=== PATIENT | male | born 1955 | race Caucasian/White ===

== ENCOUNTER 2022-02-28 18:22 | Inpatient (IN) | payer MEDICARE, BC ==
[~2022-02-28] VITALS: Ht 180.3 cm; Wt 79.8 kg
--- NOTE | 2022-02-28 19:30 | NUR ---
[id number]. ABD PAIN X 3 DAY. +N,-V,+D. PATIENT IS AAOX4. ABLE TO EXPLAIN THAT THE PAIN IS ON AND OFF. STABBING IN PRESENTATION. WHENEVER HE IS IN PAIN, HE WILL ACCIDENTALLY PASS LIQUID STOOL. PLACED PATIENT COMFORTABLY IN BED. VITALS CHECKED.
[2022-02-28] MEDS ORDERED: MORPHINE SULFATE INJ 4 MG/ML DISP.SYRIN ONE (20:11)
[2022-02-28] MEDS ORDERED: ONDANSETRON HCL/PF 4 MG/2 ML VIAL ONE (20:11)
--- NOTE | 2022-02-28 20:15 | NUR ---
PATIENT BROUGHT TO CT DEPT
[2022-02-28] MEDS ORDERED: ONDANSETRON HCL/PF 4 MG/2 ML VIAL IVP ONE (20:30)
[2022-02-28] MEDS ORDERED: MORPHINE SULFATE INJ 2 MG/ML DISP.SYRIN IV ONE (20:30)
[2022-02-28 20:55] LABS: BASOPHILS # (AUTO) 0.1 K/uL (0.0-0.2); BASOPHILS % (AUTO) 0.2 % (0.0-2.0); EOSINOPHILS % (AUTO) 0.1 % (0.0-6.0); HEMATOCRIT 41 % (39-51); HEMOGLOBIN 13.1 g/dL (13.5-17.5); LYMPHOCYTES # (AUTO) 0.6 K/uL (0.8-4.8); MEAN CORPUSCULAR HGB CONC 32 g/dl (31.0-36.0); MEAN CORPUSCULAR VOLUME 86 fL (80-96); MONOCYTES % (AUTO) 6.1 % (2.0-12.0); NEUTROPHILS # (AUTO) 29.3 K/uL (1.8-8.9); NEUTROPHILS % (AUTO) 91.6 % (43.0-81.0); PLATELET COUNT (AUTO) 697 K/uL (150-450); RED BLOOD CELL COUNT(AUTO) 4.83 MIL/uL (4.5-6.0)
--- NOTE | 2022-02-28 20:56 | NUR ---
DR FRANCIS ON THE PHONE WITH DR TEMPLETON, GEN SURG
[2022-02-28] MEDS ORDERED: PIPERACILLIN /TAZOBACTAM 3.375 G in IV D5W 50 ML IV ONE (21:00)
[2022-02-28] MEDS ORDERED: PIPERACILLIN /TAZOBACTAM 3.375 G VIAL IV ONE (21:17)
[2022-02-28 21:21] LABS: ALANINE AMINOTRANSFERASE 25 U/L (12-78); ALBUMIN 2.5 g/dL (3.4-5.0); ALKALINE PHOSPHATASE 123 U/L (46-116); ASPARTATE AMINOTRANSFERASE 27 U/L (15-37); BILIRUBIN,DIRECT 0.1 mg/dL (0.0-0.2); BILIRUBIN,TOTAL 0.6 mg/dL (0.2-1.0); CALCIUM, SERUM 9.2 mg/dL (8.5-10.1); CARBON DIOXIDE 26 mmol/L (21-32); CHLORIDE 95 mmol/L (98-107); CREATININE 1.1 mg/dL (0.6-1.3); GLUCOSE 142 mg/dL (74-106); LIPASE 47 U/L (73-393); POTASSIUM 4.1 mmol/L (3.5-5.1); SODIUM SERUM 131 mmol/L (136-145); TOTAL PROTEIN, SERUM 8.8 g/dL (6.4-8.2); UREA NITROGEN, BLOOD 18 mg/dL (7-18)
--- NOTE | 2022-02-28 21:30 | NUR ---
RECEIVED A CALL FROM FRIEND SEGUN STAFFORD . PATIENT WANTS HER NAME ON THE LIST. UPDATE GIVEN TO LEN CAST
[2022-02-28 22:23] LABS: BAND % (MANUAL) 2 % (0.0-5.0); LYMPHOCYTES % (MANUAL) 8 % (16-48); MONOCYTES % (MANUAL) 5 % (0-11.0); NEUTROPHILS % (MANUAL) 85 (42-76)
--- NOTE | 2022-02-28 22:25 | NUR ---
REPORT GIVEN TO GEORGE BALBUENA. PATIENT WILL GO UP SOON COVID RESULT OUT.
[2022-02-28] MEDS ORDERED: ENOXAPARIN SODIUM 40 MG/0.4 ML DISP.SYRIN SQ SCH (22:30)
[2022-02-28] MEDS ORDERED: VANCOMYCIN 1.5 GM in IV D5W 500ml IV ONE (23:30)
[2022-02-28] MEDS ORDERED: CEFEPIME 2 GM in IV D5W 100 ML IV ONE (23:30)
--- NOTE | 2022-02-28 23:30 | NUR ---
TEXTED DR MOSER ABOUT THE CRITICAL RESULT OF PATIENT. AWAITING FOR RESPONSE.
--- NOTE | 2022-02-28 23:56 | NUR ---
RN NOTE (RECEIVING PATIENT FROM ER) PATIENT ARRIVED TO ER VIA GURNEY FROM ER. A/OX4. NO S/S/ OF DISTRESS, BREATHING WITHOUT DIFFICULTY ON ROOM AIR. LFA #20 INTACT AND PATENT. TELE MONITOR APPLIED AND REVEALS ST 116 (~PATIENT'S NORMAL PER CURRENT RECORD). SAFETY MEASURES IN PLACE: BED LOCKED AND AT LOWEST POSITION, RAILS UP X2, CALL MCFADDEN WITHIN REACH. PATIENT WAS ORIENTED TO THE UNIT, GIVEN CALL MCFADDEN AND INSTRUCTED ON ITS USE. PATEINT TELE MONITOR APPLIED TO PATIENT. BELONGINGS ACCOUNTED FOR, LOGGED INTO SHEET, AND PLACED IN CHART. DR. MOSER HAS ALREADY COME UP AND SEEN THE PATIENT. THIS RN WAS AT BEDSIDE THIS HAPPENED. PATIENT IS STABLE; WILL CONTINUE TO MONITOR PATIENT.
--- NOTE | 2022-02-28 23:58 | NUR ---
TRANSFERRED PATIENT TO ROOM PER STRETCHER
[2022-03-01] VITALS (8 sets, daily range): BP systolic 112–146; BP diastolic 72–88
[2022-03-01] MEDS ORDERED: IV NS 0.9% 1,000 ML IV ONE (00:30)
[2022-03-01] MEDS ORDERED: VANCOMYCIN 1 GM VIAL ONE ×2 (00:50→00:51)
[2022-03-01] MEDS: IV NS 0.9% 1,000 ML IV SCH ×4 (01:29→22:58)
[2022-03-01] MEDS: ONDANSETRON HCL/PF 4 MG/2 ML VIAL IVP PRN ×4 (02:46→22:57)
[2022-03-01 05:06] LABS: BILIRUBIN,URINE NEGATIVE (NEGATIVE); COLOR,URINE YELLOW (YELLOW); LEUKOCYTE ESTERASE ,URINE NEGATIVE (NEGATIVE); NITRITE, URINE NEGATIVE (NEGATIVE); PH,URINE 5.5 (5.0-8.0); PROTEIN,URINE NEGATIVE (NEGATIVE); UGLUCOSE NEGATIVE (NEGATIVE); UROBILINOGEN,URINE 0.2 EU/dL (0.2)
[2022-03-01 05:08] LABS: BACTERIA,URINE Rare /HPF (None Seen); RBC,URINE 0-2 /HPF (0-2); SQUAMOUS EPITHELIAL CELL,UR Rare /HPF (None Seen); WBC,URINE 0-2 /HPF (0-3)
[2022-03-01 05:55] LABS: BASOPHILS # (AUTO) 0.1 K/uL (0.0-0.2); BASOPHILS % (AUTO) 0.3 % (0.0-2.0); HEMATOCRIT 40 % (39-51); HEMOGLOBIN 12.9 g/dL (13.5-17.5); LYMPHOCYTES # (AUTO) 0.6 K/uL (0.8-4.8); LYMPHOCYTES % (AUTO) 2.1 % (20.0-44.0); MEAN CORPUSCULAR HGB CONC 32 g/dl (31.0-36.0); MEAN CORPUSCULAR VOLUME 85 fL (80-96); MONOCYTES # (AUTO) 2.4 K/uL (0.1-1.30); MONOCYTES % (AUTO) 8.3 % (2.0-12.0); NEUTROPHILS # (AUTO) 26.2 K/uL (1.8-8.9); NEUTROPHILS % (AUTO) 89.3 % (43.0-81.0); PLATELET COUNT (AUTO) 686 K/uL (150-450); RED BLOOD CELL COUNT(AUTO) 4.75 MIL/uL (4.5-6.0); WHITE BLOOD COUNT (AUTO) 29.4 K/uL (4.3-11.0)
[2022-03-01 06:16] LABS: ALBUMIN 2.2 g/dL (3.4-5.0); BILIRUBIN,TOTAL 0.5 mg/dL (0.2-1.0); CALCIUM, SERUM 8.8 mg/dL (8.5-10.1); MAGNESIUM 1.9 mg/dL (1.8-2.4); PHOSPHORUS 2.8 mg/dL (2.5-4.9); POTASSIUM 3.7 mmol/L (3.5-5.1); TOTAL PROTEIN, SERUM 7.7 g/dL (6.4-8.2)
--- NOTE | 2022-03-01 06:25 | NUR ---
RN CLOSING NOTE PATIENT AWAKE IN BED. A/OX4. NO S/S OF DISTRESS, BREATHING WITHOUT DIFFICULTY ON ROOM AIR. LFA #20 INTACT AND PATENT W/ NS 125ML/HR. TELE MONITOR READS ST 103. SAFETY MEASURES IN PLACE: BED LOCKED AND IN PLACE, RAILS UP X3, CALL MCFADDEN WITHIN REACH. WILL ENDORSE TO NEXT SHIFT FOR DANISHA.
[2022-03-01] MEDS: CEFEPIME 2 GM in IV D5W 100 ML IV SCH ×3 (08:32→22:57)
[2022-03-01] MEDS ORDERED: FOLI0.4T6 PO (08:33)
--- NOTE | 2022-03-01 09:37 | NUR ---
WOUND CARE CONSULT: PT REFUSED SKIN ASSESSMENT AND STATED HAS NO OPEN WOUNDS. WILL SEE PRN.
[2022-03-01 11:36] LABS: BAND % (MANUAL) 2 % (0.0-5.0); LYMPHOCYTES % (MANUAL) 4 % (16-48); MONOCYTES % (MANUAL) 4 % (0-11.0); NEUTROPHILS % (MANUAL) 90 (42-76)
[2022-03-01] MEDS ORDERED: LIDOCAINE 1% INJ 50 ML MDV IJ ONE (12:53)
[2022-03-01] MEDS ORDERED: FENTANYL PF 250MCG/5ML AMPUL IV PRN (13:30)
[2022-03-01] MEDS ORDERED: FLUMAZENIL 0.5 MG VIAL IV PRN ×2 (13:30)
[2022-03-01] MEDS ORDERED: NALOXONE HCL 0.4 MG/ML AMPUL IV PRN (13:30)
[2022-03-01] MEDS ORDERED: MIDAZOLAM HCL 2 MG/2ML VIAL IV PRN (13:30)
[2022-03-01] MEDS ORDERED: NALOXONE PREFILLED SYRINGE 2 MG/2 ML SYRINGE IV PRN (13:30)
[2022-03-01] MEDS ORDERED: MIDAZOLAM HCL 2 MG/2ML VIAL IV ONE (13:30)
[2022-03-01] MEDS ORDERED: FENTANYL PF 100MCG/2ML AMPUL IV ONE (13:30)
[2022-03-01] MEDS: VANCOMYCIN 1 GM in IV D5W 250ml IV SCH (17:33)
--- NOTE | 2022-03-01 18:27 | NUR ---
RN CLOSING NOTE PATIENT RECEIVED ON SHIFT IN BED AND AWAKE. A/O X4 AND ABLE TO VERBALIZE ALL NEEDS. IV ACCESS TO LFA REMAINED IN TACT AND PATENT ON SHIFT. NS RUNNING CONTINUOUSLY @ 125ML/HR. PATIENT C/O NAUSEA ON SHIFT. RECEIVED ZOFRAN VIA IV PUSH X2. RECEIVED CT ABDOMEN DRAINAGE ON SHIFT; PERFORMED IN RADIOLOGY. BODILY FLUID FROM DRAINAGE SENT TO LAB/PATHOLOGY PER PHYSICIAN ORDER. PATIENT CURRENTLY HAS 2 DRAINS FROM EACH PUNCTURE SITE ON LEFT AND RIGHT OF ABDOMEN. MINIMAL AMOUNT OF DRAINAGE IN TUBING. PATIENT UNABLE TO TOLERATED MEALS HE REMAINED NAUSEOUS THROUGHOUT SHIFT. IV ANTIBIOTICS GIVEN ON SHIFT. TOLERATED BOTH WELL WITH NO S/SX OF ADVERSE REACTIONS. SAFETY MEASURES INTACT, CALL LIGHT WITHIN REACH. WILL CONT TO MONITOR.
--- NOTE | 2022-03-01 20:23 | NUR ---
RN OPENING NOTE PATIENT AWAKE IN BED. A/OX4. NO S/S OF DISTRESS, BREATHING WITHOUT DIFFICULTY ON ROOM AIR. LFA #20 INTACT AND PATENT W/ NS 125ML/HR. TELE READS ST 105. SAFETY MEASURES IN PLACE: BED LOCKED, AT LOWEST POSITION, RAILS UP X2, CALL MCFADDEN WITHIN REACH. WILL CONTINUE TO MONITOR THE PATIENT.
[2022-03-02] MEDS: VANCOMYCIN 1 GM in IV D5W 250ml IV SCH (02:37)
[2022-03-02] MEDS: ONDANSETRON HCL/PF 4 MG/2 ML VIAL IVP PRN ×4 (05:15→18:12)
[2022-03-02 05:37] VITALS: BP 139/84
[2022-03-02 06:17] LABS: CALCIUM, SERUM 8.4 mg/dL (8.5-10.1); CREATININE 0.9 mg/dL (0.6-1.3); POTASSIUM 3.2 mmol/L (3.5-5.1)
--- NOTE | 2022-03-02 06:28 | NUR ---
RN CLOSING NOTE PATIENT AWAKE IN BED. A/OX4. NO S/S OF DISTRESS, BREATHING WITHOUT DIFFICULTY ON ROOM AIR. LFA #20 INTACT AND PATENT W/ NS 125ML/HR. TELE READS SR 87. SAFETY MEASURES IN PLACE: BED LOCKED AND AT LOWEST POSITION, RAILS UP X2, CALL MCFADDEN WITHIN REACH. WILL ENDORSE TO NEXT SHIFT FOR DANISHA.
--- NOTE | 2022-03-02 07:20 | NUR ---
SEWER AND INSPECTOR OPENING NOTES RECEIVED PATIENT SLEEPING IN BED, ON 5L VIA NC, NO S/S OF RESPIRATORY DISTRESS. A/Ox1-3, EPISODES OF CONFUSION, GOES IN AND OUT OF A/O x1 TO A/Ox 3. ON TELE MONITORING SHOWING SINUS TACH WITH PACs HR 106. NO COMPLAINT OF CHEST PAIN OR CARDIAC DISTRESS. IV ACCESS R FA #20 WITH NS RUNNING @ 100 ML/HR. ON BED REST, PATIENT USES DIAPER. SKIN INTACT. PATIENT HAD BILATERAL SOFT WRIST RESTRAINTS. CIRCULATION WNL, SKIN INTACT, WILL CONTINUE TO MONITOR Q15 MINUTES AND NEEDED. SAFETY MEASURES IN PLACE: BED LOCKED AND IN LOWEST POSITION, HOB ELEVATED, SIDE RAILS UP x2, CALL LIGHT WITHIN REACH. WILL CONTINUE TO MONITOR.
[2022-03-02 08:00] VITALS: BP 137/86
[2022-03-02] MEDS: CEFEPIME 2 GM in IV D5W 100 ML IV SCH ×3 (08:20→22:14)
[2022-03-02] MEDS: IV NS 0.9% 1,000 ML IV SCH ×2 (08:23→16:26)
--- NOTE | 2022-03-02 08:30 | NUR ---
RN OPENING NOTE- RECEIVED REPORT. BEGIN CARE OF PT
[2022-03-02] MEDS: MORPHINE SULFATE INJ 2 MG/ML DISP.SYRIN IV PRN ×3 (08:32→20:55)
[2022-03-02] MEDS: ENOXAPARIN SODIUM 40 MG/0.4 ML DISP.SYRIN SQ SCH (10:22)
[2022-03-02] MEDS: POTASSIUM CHLORIDE 20 MEQ TAB.PRT.SR PO SCH ×3 (10:23→12:49)
[2022-03-02 11:01] LABS: BASOPHILS % (AUTO) 0.1 % (0.0-2.0); HEMATOCRIT 39 % (39-51); HEMOGLOBIN 12.3 g/dL (13.5-17.5); LYMPHOCYTES # (AUTO) 0.9 K/uL (0.8-4.8); LYMPHOCYTES % (AUTO) 2.8 % (20.0-44.0); MEAN CORPUSCULAR HGB CONC 32 g/dl (31.0-36.0); MEAN CORPUSCULAR VOLUME 85 fL (80-96); MONOCYTES # (AUTO) 2.5 K/uL (0.1-1.30); MONOCYTES % (AUTO) 8.1 % (2.0-12.0); NEUTROPHILS # (AUTO) 27.9 K/uL (1.8-8.9); PLATELET COUNT (AUTO) 685 K/uL (150-450); RED BLOOD CELL COUNT(AUTO) 4.55 MIL/uL (4.5-6.0)
[2022-03-02 11:23] LABS: WHITE BLOOD COUNT (AUTO) 31.3 K/uL (4.3-11.0)
--- NOTE | 2022-03-02 11:24 | NUR ---
RN NOTE- LAB PHONED WBC 31.1. DR CALLAHAN AWARE
--- NOTE | 2022-03-02 11:48 | NUR ---
RN NOTE- PT W TERESA. AUGUSTINE STRATTON NP ORDERED REGLAN 10 IVP TID PRN
[2022-03-02 12:00] VITALS: BP 143/81
[2022-03-02] MEDS: METOCLOPRAMIDE HCL 10 MG/2 ML VIAL IV PRN ×2 (12:49→20:53)
[2022-03-02 13:07] LABS: *SPE A/G RATIO 0.5 (0.7-1.7); *SPE ALPHA-1-GLOBULIN 0.4 g/dL (0.0-0.4); *SPE ALPHA-2-GLOBULIN 1.3 g/dL (0.4-1.0); *SPE BETA GLOBULIN 0.9 g/dL (0.7-1.3); *SPE M-SPIKE Not Observed g/dL (Not Observed)
[2022-03-02] MEDS: VANCOMYCIN 1.25 GM in IV D5W 250 ML IV SCH (14:48)
[2022-03-02 16:00] VITALS: BP 130/94
--- NOTE | 2022-03-02 19:14 | NUR ---
RN CLOSING NOTES AOX4, NAUSEA CONTINUES DOES HICCOUGHS THOUGH PERIODS OF RELIEF IV ACCESS R FA #20 WITH NS RUNNING @ 100 ML/HR. ON BED REST, SKIN INTACT. SKIN INTACT, WILL CONTINUE TO MONITOR Q15 MINUTES AND NEEDED. SAFETY MEASURES IN PLACE: BED LOCKED AND IN LOWEST POSITION, HOB ELEVATED, SIDE RAILS UP x2, CALL LIGHT WITHIN REACH. WILL CONTINUE TO MONITOR.
--- NOTE | 2022-03-02 19:30 | NUR ---
UNIVERSAL BANKER OPENING NOTES RECEIVED PATIENT LYING IN BED AWAKE. A/O X4. BREATHING EVEN AND NON-LABORED ON ROOM AIR. NOT IN APPARENT DISTRESS. C/O LOWER ABDOMINAL PAIN 10/05. VERBALIZED HE STILL FEELS NAUSEOUS AND HAVE HICCUPS AT TIMES. ON TELE MONITOR READING SINUS RHYTHM WITH V-PACING AT 86 BPM. HAS LEFT FOREARM IV ACCESS #20G WITH NS RUNNING AT 125 ML/HR. BILATERAL ABDOMINAL DRAIN NOTED WITH BROWNISH DISCHARGE. SAFETY MEASURES IN PLACE: BED LOCKED AND IN LOWEST POSITION, SIDE RAILS UP x2, CALL LIGHT WITHIN REACH. WILL CONTINUE POC. Addendum: 03/02/22 at 2120 by October ROOSEVELT VAZQUEZ ON TELE MONITOR READING SINUS RHYTHM AT 86 BPM.
[2022-03-02 20:00] VITALS: BP 135/91
--- NOTE | 2022-03-02 20:30 | NUR ---
COUNTY TREASURER NOTES RECEIVED A CALL FROM DR. CALLAHAN WITH THE FF ORDERS. READ BACK, NOTED AND CARRIED OUT: - NPO AT MIDNIGHT - CONSENT FOR SURGERY (EXPLORATORY LAPAROTOMY, POSSIBLE BOWEL RESECTION, POSSIBLE OSTOMY AND DRAINAGE OF ABDOMINAL PUS/INFECTION)
[2022-03-02 21:26] LABS: BAND % (MANUAL) 8 % (0.0-5.0); LYMPHOCYTES % (MANUAL) 1 % (16-48); MONOCYTES % (MANUAL) 3 % (0-11.0); NEUTROPHILS % (MANUAL) 88 (42-76)
[2022-03-03] VITALS (10 sets, daily range): BP systolic 92–143; BP diastolic 59–81
[2022-03-03] MEDS: VANCOMYCIN 1.25 GM in IV D5W 250 ML IV SCH ×2 (01:32→14:55)
[2022-03-03] MEDS: METOCLOPRAMIDE HCL 10 MG/2 ML VIAL IV PRN (05:15)
[2022-03-03 06:14] LABS: BASOPHILS % (AUTO) 0.1 % (0.0-2.0); HEMATOCRIT 37 % (39-51); HEMOGLOBIN 11.7 g/dL (13.5-17.5); LYMPHOCYTES # (AUTO) 0.7 K/uL (0.8-4.8); LYMPHOCYTES % (AUTO) 2.6 % (20.0-44.0); MEAN CORPUSCULAR HGB CONC 32 g/dl (31.0-36.0); MEAN CORPUSCULAR VOLUME 83 fL (80-96); MONOCYTES # (AUTO) 1.6 K/uL (0.1-1.30); MONOCYTES % (AUTO) 5.7 % (2.0-12.0); NEUTROPHILS # (AUTO) 25.7 K/uL (1.8-8.9); NEUTROPHILS % (AUTO) 91.6 % (43.0-81.0); PLATELET COUNT (AUTO) 702 K/uL (150-450); RED BLOOD CELL COUNT(AUTO) 4.39 MIL/uL (4.5-6.0); WHITE BLOOD COUNT (AUTO) 28.1 K/uL (4.3-11.0)
[2022-03-03 06:30] LABS: BILIRUBIN,TOTAL 0.5 mg/dL (0.2-1.0); CALCIUM, SERUM 8.4 mg/dL (8.5-10.1); CREATININE 0.9 mg/dL (0.6-1.3); MAGNESIUM 1.9 mg/dL (1.8-2.4); POTASSIUM 3.7 mmol/L (3.5-5.1)
--- NOTE | 2022-03-03 06:30 | NUR ---
VIDEO TAPE DUPLICATOR CLOSING NOTES PATIENT LYING IN BED ASLEEP, EASY TO AROUSE. A/O X4. STILL HAVING INTERMITTENT HICCUPS. CURRENTLY NPO. NO SOB OR NOTED, TOLERATING ROOM AIR WELL. DENIES PAIN AT THIS TIME. AFEBRILE. ON TELE MONITOR READING SINUS RHYTHM AT 88 BPM. HAS LEFT FOREARM IV ACCESS #20G AND SALINE LOCKED. INTACT, PATENT AND FLUSHING. BILATERAL ABDOMINAL DRAIN NOTED WITH MINIMAL BROWNISH DISCHARGE. ALL DUE MEDS GIVEN AND NEEDS ATTENDED. SAFETY MEASURES MAINTAINED: BED LOCKED AND IN LOWEST POSITION, SIDE RAILS UP X2, CALL LIGHT WITHIN REACH. WILL ENDORSE FOR DANISHA.
[2022-03-03 06:43] LABS: ALBUMIN 1.9 g/dL (3.4-5.0)
[2022-03-03] MEDS: CEFEPIME 2 GM in IV D5W 100 ML IV SCH ×3 (06:58→22:12)
[2022-03-03] MEDS ORDERED: LIDOCAINE HCL/MPF 1% 30 ML VIAL IJ ONE (07:18)
[2022-03-03] MEDS ORDERED: BUPIVACAINE MPF 0.5% W/EPI INJ 30 ML VIAL ONE (07:19)
--- NOTE | 2022-03-03 07:30 | NUR ---
MEDICARE COMPLIANCE AUDITOR OPENING NOTES RECEIVED PT IN BED, AWAKE ALERT AND ORIENTED X 4 AND ABLE TO VERBALIZED NEEDS, NO SOB OR CARDIAC DISTRESS NOTED. ON MOLDER FITTING WITH CURRENT READING SR @88 BPM. NOTED WITH BILATERAL INTRA ABDOMINAL DRAIN. MAINTAINED ON NPO FOR SURGERY TODAY. IV ACCESS ON LFA G20 PATENT, INTACT AND SALINE LOCKED. SAFETY MEASURES MAINTAINED: BED LOCKED AND IN LOWEST POSITION. SIDE RAILS UP X 2 CALL LIGHT IN EASY REACH FOR HELP. WILL MONITOR ACCORDINGLY.
--- NOTE | 2022-03-03 08:00 | NUR ---
RN NOTES: PT DC TELE MONITOR AND NOW ON MS, FURNITURE REPRODUCER WAS GIVEN TO US YARIEL.
--- NOTE | 2022-03-03 08:10 | NUR ---
RN NOTES: PT PICKED UP BY OR TRANSPORTER AND RN VIA BED. VS WNL. PT LEFT THE UNIT STABLE. PT FOR SURGERY.
[2022-03-03] MEDS ORDERED: ROCURONIUM BROMIDE 50 MG/5 ML ONE ×2 (08:23→09:11)
[2022-03-03] MEDS ORDERED: FENTANYL PF 100MCG/2ML AMPUL ONE (08:23)
[2022-03-03] MEDS ORDERED: PHYTONADIONE INJ 10 MG/1 ML AMPUL ONE (09:04)
[2022-03-03] MEDS ORDERED: HYDROMORPHONE INJ 2 MG/ML DISP.SYRIN ONE (09:24)
[2022-03-03] MEDS: ENOXAPARIN SODIUM 40 MG/0.4 ML DISP.SYRIN SQ SCH (10:00)
[2022-03-03] MEDS ORDERED: BACITRACIN ZINC OINT (15 GM) 15 GM TUBE TP ONE (10:28)
[2022-03-03] MEDS: IV LR 1000 ML 1,000 ML IV SCH ×2 (12:00→13:02)
--- NOTE | 2022-03-03 12:03 | NUR ---
RN NOTES: PT STILL IN SURGERY LR 1L IVF NOT GIVEN.
--- NOTE | 2022-03-03 12:45 | NUR ---
RN NOTES: PT CAME BACK FROM SURGERY. S/P EXLAP LAPAROTOMYLYSIS WITH EXTENSIVE ADHESIONS, MULTIPLE BIOPSIES ,DRAINAGE WITH ABSCESS CAVITIES BILATERAL AND PLACEMENT OF NAVEED DRAINS. PT AWAKE, STILL GROGGY. NO SOB OR CARDIAC DISTRESS NOTED. ON ROOM AIR AND SATURATING 94-95% ON ROOM AIR. WITH NG TUBE NOTED ON LEFT NOSTRIL ON INTERMITTENT LOW SUCTION NOTED WITH BLACKISH BROWN DISCHARGE.. WITH ABDOMINAL DRESSING NO BLEEDING OR UNUSUAL DISCHARGES NOTED. IV ACCESS ON LEFT HAND G18,LFA G20 PATENT ,INTACT AND INFUSING LR 1L @150CC/HR. NOTED WITH BILATERAL NAVEED DRAIN WITH SEROUS DRAINAGE ON NEGATIVE PRESSURE, TROY CATHETER IN PLACE DRAINING CLEAR YELLOW COLORED URINE BY GRAVITY. MAINTAIN NPO AND FC REMAIN UNTIL FURTHER ORDERS. I & O EVERY SHIFT, LABS ORDERS IN AM. VS WITHIN NORMAL. 103/64, 97.5F, 91 BPM, 19, 94% O2 SATURATION. WILL MONITOR PT ACCORDINGLY.
[2022-03-03] MEDS ORDERED: NEUTRA PHOS 1 POWD.PACKET PO ONE (15:00)
[2022-03-03] MEDS ORDERED: Sodium Phosphate 15 MMOL in IV D5W 250 ML IV ONE (16:00)
--- NOTE | 2022-03-03 18:40 | NUR ---
rn notes: felix drain left 35cc right 15cc.
--- NOTE | 2022-03-03 18:50 | NUR ---
MS RN CLOSING NOTES: PATIENT ASLEEP BUT EASILY AROUSED WITH STIMULI VERBALLY AND TOUCH. NO SOB OR CARDIAC DISTRESS NOTED, ON ROOM AIR AND SATURATING AT 95%. NG TUBE IN PLACE ON LOW INTERMITTENT SUCTION DRAINING BLACKISH BROWN DISCHARGE. IV ACCESS ON LEFT HAND AND LEFT FOREARM PATENT AND INTACT INFUSING NS 1L @150CC/HR. ABDOMINAL DRESSING INTACT WITH NO BLEEDING NOTED, BILATERAL NAVEED DRAIN WITH SEROUS DRAINAGE NOTED, TROY CATH IN PLACE DRAINING CLEAR YELLOW COLORED URINE BY GRAVITY. PT DENIES ANY PAIN AT THIS TIME. SAFETY PRECAUTIONS MAINTAINED BED LOCKED AND IN LOWEST POSITION, SIDE RAILS UP X 2 CALL LIGHT IN EASY REACH FOR HELP. WILL MONITOR AND ENDORSE TO NOC SHIFT FOR DANISHA.
--- NOTE | 2022-03-03 19:30 | NUR ---
MS RN OPENING NOTES RECEIVED PATIENT LYING IN BED ASLEEP, EASY TO AROUSE BUT GROGGY. A/O X4. BREATHING EVEN AND NON-LABORED ON ROOM AIR, SATURATING AT 94%. NOT IN APPARENT DISTRESS. NO C/O PAIN OR DISCOMFORT. HAS NG-TUBE INSERTED IN LEFT NARES ON LOW INTERMITTENT SUCTION DRAINING BLACKISH BROWN DISCHARGE. HAS LEFT FOREARM IV ACCESS #20G AND LEFT HAND IV ACCESS #18G WITH SODIUM PHOSPHATE RUNNING AT 64.6 ML/HR. NO S/S OF INFILTRATION NOTED. HAS INDWELLING TROY CATHETER DRAINING CLEAR YELLOW URINE TO BAG BY GRAVITY. ABDOMINAL DRESSING C/D/I. BILATERAL NAVEED DRAIN WITH SEROUS DRAINAGE NOTED. SAFETY PRECAUTIONS IN PLACE: BED LOCKED AND IN LOWEST POSITION, SIDE RAILS UP X 2, CALL LIGHT WITHIN REACH. WILL CONTINUE POC.
[2022-03-04] MEDS: IV LR 1000 ML 1,000 ML IV SCH ×3 (01:45→23:10)
[2022-03-04] MEDS: VANCOMYCIN 1.25 GM in IV D5W 250 ML IV SCH ×2 (01:45→15:30)
[2022-03-04 05:59] LABS: BASOPHILS % (AUTO) 0.1 % (0.0-2.0); HEMATOCRIT 34 % (39-51); HEMOGLOBIN 11.1 g/dL (13.5-17.5); LYMPHOCYTES # (AUTO) 0.9 K/uL (0.8-4.8); LYMPHOCYTES % (AUTO) 3.5 % (20.0-44.0); MEAN CORPUSCULAR HGB CONC 32 g/dl (31.0-36.0); MEAN CORPUSCULAR VOLUME 83 fL (80-96); MONOCYTES # (AUTO) 1.8 K/uL (0.1-1.30); MONOCYTES % (AUTO) 6.9 % (2.0-12.0); NEUTROPHILS # (AUTO) 23.4 K/uL (1.8-8.9); NEUTROPHILS % (AUTO) 89.5 % (43.0-81.0); PLATELET COUNT (AUTO) 656 K/uL (150-450); RED BLOOD CELL COUNT(AUTO) 4.13 MIL/uL (4.5-6.0); WHITE BLOOD COUNT (AUTO) 26.2 K/uL (4.3-11.0)
[2022-03-04] MEDS: CEFEPIME 2 GM in IV D5W 100 ML IV SCH ×3 (06:04→22:46)
[2022-03-04] MEDS ORDERED: MORPHINE SULFATE INJ 2 MG/ML DISP.SYRIN IV ONE ×2 (06:15→23:30)
--- NOTE | 2022-03-04 06:16 | NUR ---
MS RN NOTES PT C/O SHARP ABDOMINAL PAIN 01/05. NO PRN PAIN MEDS EXCEPT TYLENOL, PT IS NPO. NOTIFIED RUSS HYDRAULIC BULL RIVETER OPERATOR AND ORDERED MORPHINE 2MG IVP X1. NOTED AND CARRIED OUT.
[2022-03-04 06:46] LABS: CREATININE 0.9 mg/dL (0.6-1.3); MAGNESIUM 1.9 mg/dL (1.8-2.4); PHOSPHORUS 2.9 mg/dL (2.5-4.9); POTASSIUM 4.1 mmol/L (3.5-5.1)
--- NOTE | 2022-03-04 06:54 | NUR ---
MS RN CLOSING NOTES PATIENT LYING IN BED ASLEEP BUT EASY TO AROUSE. A/O X4. NO SOB OR NOTED, TOLERATING ROOM AIR WELL. C/O SHARP ABDOMINAL PAIN 8/10, MORPHINE 2MG IVP X1 ADMINISTERED. AFEBRILE. NG-TUBE DRAINING BLACKISH BROWN DISCHARGE. HAS LEFT FOREARM IV ACCESS #20G AND LEFT HAND IV ACCESS #18G WITH LR RUNNING AT 150 ML/HR. INTACT, PATENT AND FLUSHING. HAS URINE OUTPUT OF 1200 ML. ABDOMINAL DRESSING C/D/I. NAVEED DRAIN OUTPUT: LEFT 35 ML; RIGHT 25 ML. PATIENT WAS ASKING FOR SIPS OF WATER, EXPLAINED WHY HE IS NPO. OFFERED TO WET HIS MOUTH USING A TOOTETH INSTEAD. ALL DUE MEDS GIVEN AND NEEDS ATTENDED. SAFETY PRECAUTIONS MAINTAINED. WILL ENDORSE TO NEXT SHIFT FOR DANISHA.
--- NOTE | 2022-03-04 07:30 | NUR ---
MS RN OPENING NOTES RECEIVED PATIENT ON BED AWAKE AND A/O X4. ON ROOM AIR TOLERATING WELL. NO SOB NOTED. NOT IN DISTRESS. WITH NO COMPLAINTS OF PAIN OR DISCOMFORT AT THIS TIME. WITH NG-TUBE AT LEFT NARES ON LOW INTERMITTENT SUCTION DRAINING BLACKISH BROWN DISCHARGE. WITH IV ACCESS AT LEFT FOREARM G20 AND LEFT HAND G18 WITH IVF LR AT 150ML/HR INFUSING WELL. WITH INDWELLING TROY CATHETER DRAINING CLEAR YELLOW URINE TO BAG BY GRAVITY. ABDOMINAL DRESSING C/D/I. BILATERAL NAVEED DRAIN WITH SEROUS DRAINAGE NOTED. SAFETY PRECAUTIONS IN PLACE: BED LOCKED AND IN LOWEST POSITION, SIDE RAILS UP X 2, CALL LIGHT WITHIN REACH. WILL CONTINUE TO MONITOR.
[2022-03-04] MEDS: ENOXAPARIN SODIUM 40 MG/0.4 ML DISP.SYRIN SQ SCH (09:20)
--- NOTE | 2022-03-04 11:00 | NUR ---
RN NOTES DR. CALLAHAN CALLED AND ASKED ABOUT PT'S CONDITION, OUTPUT OF HIS NGT CONNECTED TO LOW INTERMITTENT SUCTION AND OF HIS 2 NAVEED DRAIN. INFORMED THAT NO OUTPUT FROM HIS NGT AND THE AMOUNT OF OUTPUT OF HIS NAVEED DRAIN. DOCTOR ORDERED TO REMOVE NGT IF WITHOUT ANY OUTPUT AND HE WILL ORDER TO START PATIENT ON CLEAR LIQUIDS SOON BUT MAY PROVIDE ICE CHIPS.
[2022-03-04] MEDS: ACETAMINOPHEN 325 MG TABLET PO PRN (12:02)
--- NOTE | 2022-03-04 18:20 | NUR ---
DR. CALLAHAN ORDERED TO REMOVE NGT IF WITH NO GASTRIC OUTPUT. NO GASTRIC OUTPUT NOTED ALL THROUGHOUT THE SHIFT, NGT REMOVED PER DOCTOR'S ORDER.
--- NOTE | 2022-03-04 18:50 | NUR ---
RN NOTE REMOVED 15ML OF SEROUS FLUID FROM THE RIGHT NAVEED DRAIN AND 30ML OF SEROSANGUINEOUS FLUID FROM THE LEFT NAVEED DRAIN.
--- NOTE | 2022-03-04 19:00 | NUR ---
MS RN CLOSING NOTES PATIENT ON BED AWAKE AND A/O X4. ON ROOM AIR TOLERATING WELL. NO SOB NOTED. NOT IN DISTRESS. WITH NO COMPLAINTS OF PAIN OR DISCOMFORT AT THIS TIME. WITH IV ACCESS AT LEFT FOREARM G20 AND LEFT HAND G18 WITH IVF LR AT 100ML/HR INFUSING WELL. WITH INDWELLING TROY CATHETER DRAINING CLEAR YELLOW URINE TO BAG BY GRAVITY. ABDOMINAL DRESSING C/D/I. BILATERAL NAVEED DRAIN WITH SEROUS DRAINAGE NOTED. DUE MEDS GIVEN. SAFETY PRECAUTIONS IN PLACE: BED LOCKED AND IN LOWEST POSITION, SIDE RAILS UP X 2, CALL LIGHT WITHIN REACH. WILL ENDORSE TO NEXT SHIFT FOR DANISHA.
--- NOTE | 2022-03-04 19:30 | NUR ---
MS RN NOTES RECEIVED ON BED A/O X4,S/P EX-LAP ON 03/[address] CALLAHAN,DRESSING INTACT AND DYR,WITH RIGHT AND LEFT NAVEED DRAIN.C/O PAIN LIKE 11/05,WILL MEDICATE BUT PREFERS ONLY REGULAR TYLENOL.WITH TROY CATH IN PLACE DRAINS YELLOWISH URINE OUTPUT.PRESENT IVF LR AT 100ML/HR RATE,INFUSING ON LEFT HAND SALINE.CALL LIGHT IN REACH,WILL CONTINUE TO MONITOR STATUS.
[2022-03-04 20:00] VITALS: BP 146/77
[2022-03-04 20:06] VITALS: BP 146/77
--- NOTE | 2022-03-04 23:00 | NUR ---
MS RN NOTES GOT ORDER FROM HOSPITALIST LION FOR ONE TIME PAIN MANAGEMENT,NOTED AND CARRIED OUT.
--- NOTE | 2022-03-04 23:19 | NUR ---
MS RN NOTES MORPHINE 2MG IV GIVEN ORDERED ONE TIME DOSE.VITAL SIGNS STABLE.
[2022-03-05] MEDS: VANCOMYCIN 1.25 GM in IV D5W 250 ML IV SCH ×2 (01:41→14:39)
[2022-03-05] MEDS: IV LR 1000 ML 1,000 ML IV SCH ×2 (03:08→14:23)
--- NOTE | 2022-03-05 04:30 | NUR ---
MS RN NOTES AWAKE,ASKING FOR PAIN MANAGEMENT.HOSPITALIST RUSS MADE AWARE THAT PATIENT GOT MORPHINE EARLIER FOR PAIN ORDERED BY HOSPITALIST LION AND HE REPLIED THAT HE WAS TOLD MORPHINE WAS DISCONTINUED BY CARDIO DR VAUGHN.ALSO HE WAS NOTIFIED THAT PAIN WAS BEING AGGRAVATED BY EPISODE OF HICCUPS,WITH ORDER TO GIVE THORAZINE 25MG IM X ONE DOSE.OFFERED TO PATIENT BUT HE WANTS TO HOLD IT FOR NOW, BECAUSE HE DID OTHER METHOD TO STOP HICCUPS BY DOING INHALE/EXHALE ON BROWN BAG AND ITS EFFECTIVE TO STOP IT.
--- NOTE | 2022-03-05 06:00 | NUR ---
MS RN NOTES AWAKE,NOW HE WANTS THE THORAZINE,APPARENTLY,ACCORDING TO THE ENVIRONMENT FRIENDLY LANDSCAPE DESIGNER TIFFANIE,THORAZINE IS NOT AVAILABLE ON NIGHT LOCKER.PATIENT MADE AWARE.WILL FOLLOW THIS MORNING WITH THE PHARMACY.CALL LIGHT IN REACH,NEEDS ATTENDED.
[2022-03-05] MEDS: CEFEPIME 2 GM in IV D5W 100 ML IV SCH ×3 (06:16→22:31)
--- NOTE | 2022-03-05 06:46 | NUR ---
MS RN NOTES STILL HAVING HICCUPS,DOSE TAKEN AT GPS UNIT,ADMINISTERED IM ON RIGHT BUTTOCKS.WILL ENDORSE TO DAY NURSE FOR DANISHA.
[2022-03-05 06:49] LABS: CALCIUM, SERUM 8.1 mg/dL (8.5-10.1); CREATININE 0.9 mg/dL (0.6-1.3); POTASSIUM 3.9 mmol/L (3.5-5.1)
--- NOTE | 2022-03-05 07:00 | NUR ---
MS RN OPENING NOTES RECEIVED PATIENT LYING IN BED ASLEEP. BREATHING EVEN AND NON-LABORED ON ROOM AIR, SATURATING AT 95%. NOT IN APPARENT DISTRESS. HAS LEFT FOREARM IV ACCESS, INFUSING WELL. NO S/S OF INFILTRATION NOTED. HAS INDWELLING TROY CATHETER DRAINING CLEAR YELLOW URINE TO BAG BY GRAVITY. ABDOMINAL DRESSING INTACT. SAFETY PRECAUTIONS IN PLACE. WILL CONTINUE TO MONITOR.
[2022-03-05 08:00] VITALS: BP 133/78
[2022-03-05] MEDS: ENOXAPARIN SODIUM 40 MG/0.4 ML DISP.SYRIN SQ SCH (09:41)
--- NOTE | 2022-03-05 10:14 | NUR ---
RN NOTE PATIENT IS COMPLAINING OF PAIN IN THE ABDOMEN AT THE SCALE OF 6/10 WITH HICCUPS AND REQUESTED FOR PAIN MEDICATION. RELAYED TO DR. STRATTON ABOUT PATIENT BEING IN PAIN AND ASKING FOR PAIN MEDICATION. DOCTOR ORDERED VIA TELEPHONE ORDER MORPHINE SULFATE 4MG Q3H PRN FOR PAIN.
[2022-03-05] MEDS: MORPHINE SULFATE INJ 4 MG/ML DISP.SYRIN IV PRN (12:37)
[2022-03-05 16:00] VITALS: BP 132/77
--- NOTE | 2022-03-05 17:40 | NUR ---
RN NOTES PATIENT WAS SEEN BY DR. CALLAHAN WITH ORDERS AND CARRIED OUT. TO START PROTONIX 40MG PO DAILY, THORAZINE 50MG PO TID, DECREASE IV RATE OF LR FROM 100ML/HR TO 75ML/HR AND SOFT DIET. TO REPORT TO DR. CALLAHAN IF PATIENT HAS INCREASED SLEEPINESS TO DECREASE THORAZINE DOSAGE.
[2022-03-05] MEDS: PANTOPRAZOLE 40 MG TABLET.DR PO SCH (18:17)
[2022-03-05] MEDS: chlorproMAZINE HCL 25 MG TABLET PO SCH (18:17)
--- NOTE | 2022-03-05 19:05 | NUR ---
MS RN CLOSING NOTES PATIENT ON BED AWAKE AND A/O X4. ON ROOM AIR TOLERATING WELL. NO SOB NOTED THROUGHOUT THE SHIFT. WITH IV ACCESS AT LEFT FOREARM G20 AND LEFT HAND G18 WITH IVF LR AT 100ML/HR INFUSING WELL. ENCOURAGED DEEP BREATHING FOR BETTER LUNG EXPANSION, SLOW MOVEMENT ENCOURAGED WELL. STARTED ON SOFT DIET. VERBALIZED PAIN AND DISCOMFORT AT TIMES, PRN MEDS GIVEN. KEPT COMFORTABLE. WITH INDWELLING TROY CATHETER DRAINING CLEAR YELLOW URINE TO BAG BY GRAVITY. ABDOMINAL DRESSING C/D/I. BILATERAL NAVEED DRAIN WITH SEROUS DRAINAGE NOTED. DUE MEDS GIVEN. SAFETY PRECAUTIONS IN PLACE: BED LOCKED AND IN LOWEST POSITION, SIDE RAILS UP X 2, CALL LIGHT WITHIN REACH. WILL ENDORSE TO NEXT SHIFT FOR DANISHA.
--- NOTE | 2022-03-05 19:45 | NUR ---
RN OPENING NOTES RECEIVED PATIENT LYING IN BED AWAKE. A/O X 4. NO DYSPNEA OR SOB NOTED. BREATHING IS EVEN AND NON-LABORED. SpO2= 94% ON ROOM AIR. IV ACCESS TO LEFT FOREARM, 18G INFUSING LR AT 100 MLS/HR. LINE IS PATENT AND NO S/S OF INFILTRATION NOTED. HAS INDWELLING TROY CATHETER DRAINING CLEAR YELLOW URINE TO BAG BY GRAVITY. ABDOMINAL DRESSING INTACT. SAFETY PRECAUTIONS IN PLACE: BED IN LOWEST LOCKED POSITION, SIDE RAILS UP X 2, CALL LIGHT AND TRAY TABLE WITHIN REACH. WILL CONTINUE TO MONITOR.
[2022-03-05 20:00] VITALS: BP 132/88
[2022-03-05] MEDS ORDERED: PROCHLORPERAZINE MALEATE 10 MG TABLET PO ONE (21:00)
[2022-03-05] MEDS: ONDANSETRON HCL/PF 4 MG/2 ML VIAL IVP PRN (21:34)
--- NOTE | 2022-03-05 21:44 | NUR ---
RN ADMINISTERED 2 MG ZOFRAN IVP FOR NAUSEA CAUSED BY HICCUPS. DR JOSE ORDERED 10 MG COMPAZINE SL BUT IT IS NOT IN EITHER [facility] ON MED/SURG FLOOR. CALLED THE NURSING LICENSED MORTICIAN TO LOOK FOR IT BUT SHE COULD NOT OBTAIN IT EITHER.
--- NOTE | 2022-03-05 21:48 | NUR ---
RN ADMINISTERED 4MG/2ML ZOFRAN IVP PRN FOR NAUSEA CAUSED BY HICCUPS. IV LINE PATENT AND FLUSHING WELL. DR JOSE ORDERED 10 MG COMPAZINE SL BUT THIS MED IS NOT IN EITHER [facility] ON MED/SURG FLOOR. CALLED THE NURSING COMMAND POST CRAFTSMAN TO OBTAIN IT BUT SHE WAS NOT ABLE TO LOCATE IT EITHER.
[2022-03-06] MEDS: chlorproMAZINE HCL 25 MG TABLET PO SCH ×3 (00:42→16:30)
[2022-03-06] MEDS: VANCOMYCIN 1.25 GM in IV D5W 250 ML IV SCH ×2 (02:09→13:18)
[2022-03-06] MEDS: CEFEPIME 2 GM in IV D5W 100 ML IV SCH (06:22)
[2022-03-06] MEDS: PANTOPRAZOLE 40 MG TABLET.DR PO SCH (06:46)
[2022-03-06 06:47] LABS: BASOPHILS % (AUTO) 0.1 % (0.0-2.0); EOSINOPHILS % (AUTO) 0.3 % (0.0-6.0); HEMATOCRIT 35 % (39-51); HEMOGLOBIN 11.3 g/dL (13.5-17.5); LYMPHOCYTES # (AUTO) 1.6 K/uL (0.8-4.8); LYMPHOCYTES % (AUTO) 5.2 % (20.0-44.0); MEAN CORPUSCULAR HGB CONC 32 g/dl (31.0-36.0); MEAN CORPUSCULAR VOLUME 84 fL (80-96); MONOCYTES # (AUTO) 2.4 K/uL (0.1-1.30); MONOCYTES % (AUTO) 7.8 % (2.0-12.0); NEUTROPHILS # (AUTO) 26.1 K/uL (1.8-8.9); NEUTROPHILS % (AUTO) 86.6 % (43.0-81.0); PLATELET COUNT (AUTO) 720 K/uL (150-450); RED BLOOD CELL COUNT(AUTO) 4.22 MIL/uL (4.5-6.0)
[2022-03-06 07:03] LABS: CALCIUM, SERUM 8.2 mg/dL (8.5-10.1); CARBON DIOXIDE 32 mmol/L (21-32); CHLORIDE 97 mmol/L (98-107); CREATININE 0.9 mg/dL (0.6-1.3); GLUCOSE 114 mg/dL (74-106); MAGNESIUM 2.2 mg/dL (1.8-2.4); PHOSPHORUS 3.1 mg/dL (2.5-4.9); POTASSIUM 3.7 mmol/L (3.5-5.1); SODIUM SERUM 135 mmol/L (136-145); UREA NITROGEN, BLOOD 15 mg/dL (7-18)
[2022-03-06 07:17] LABS: WHITE BLOOD COUNT (AUTO) 30.2 K/uL (4.3-11.0)
--- NOTE | 2022-03-06 07:26 | NUR ---
RN CLOSING NOTES PATIENT IN BED AWAKE AND A/O X4. NO DYSPNEA OR SOB NOTED. BREATHING IS EVEN AND UNLABORED. SpO2= 94% RA. IV ACCESS TO LEFT FOREARM G20 AND LEFT HAND G18 WITH IVF LR AT 75 ML/HR. INDWELLING TROY CATHETER DRAINING CLEAR YELLOW URINE TO GRAVITY. ABDOMINAL DRESSING C/D/I. BILATERAL NAVEED DRAIN WITH SEROUS DRAINAGE NOTED. MEDS GIVEN ORDERED. SAFETY PRECAUTIONS IN PLACE: BED LOCKED AND IN LOWEST POSITION, SIDE RAILS UP X 2, CALL LIGHT WITHIN REACH. WILL ENDORSE TO NEXT SHIFT FOR DANISHA.
[2022-03-06 07:30] LABS: PROSTATE SPECIFIC ANTIGEN SCR 1.35 ng/mL (0.00-4.00)
[2022-03-06 08:36] VITALS: BP 130/76
[2022-03-06 09:04] LABS: EOSINOPHILS % (MANUAL) 2 % (0-4); LYMPHOCYTES % (MANUAL) 18 % (16-48); MONOCYTES % (MANUAL) 6 % (0-11.0); NEUTROPHILS % (MANUAL) 74 (42-76)
[2022-03-06] MEDS: ENOXAPARIN SODIUM 40 MG/0.4 ML DISP.SYRIN SQ SCH (09:11)
--- NOTE | 2022-03-06 09:26 | NUR ---
RN NOTE WBC 30.3. DNP CHAYITO NOTIFIED. NO NEW ORDER AT THIS TIME. PT ON IV ABX AND IVF.
[2022-03-06] MEDS: MORPHINE SULFATE INJ 4 MG/ML DISP.SYRIN IV PRN ×3 (11:45→20:29)
[2022-03-06] MEDS: IV LR 1000 ML 1,000 ML IV SCH (13:18)
--- NOTE | 2022-03-06 19:41 | NUR ---
RN OPENING NOTES RECEIVED PT LAYING IN BED, ASLEEP, AWAKENS TO VERBAL STIMULI. AOX4, ABLE TO MAKE NEEDS KNOWN. ON RA AND TOLERATING WELL. NO SOB NOTED. NO SIGNS OF DISTRESS. IV ACCESS IN L HAND #18G AND LFA #20G RUNNING LR @ 75 ML/HR. SAFETY PRECAUTIOS IN PLACE: BED IN LOWEST LOCKED POSITION, SIDERAILS UP X2, BED IN LOWEST, LOCKED POSITION. CALL LIGHT AND TABLE WITHIN REACH. ALL NEEDS MET AT THIS TIME.
[2022-03-06 20:00] VITALS: BP 115/75
--- NOTE | 2022-03-06 20:30 | NUR ---
RN NOTES ADMINISTERED MORPHINE FOR PAIN 01/05 PER MD ORDER. VS WNL.
[2022-03-07] MEDS: MORPHINE SULFATE INJ 4 MG/ML DISP.SYRIN IV PRN ×3 (02:04→21:31)
--- NOTE | 2022-03-07 02:04 | NUR ---
RN NOTES ADMINISTERED MORPHINE FOR PAIN 02/05 PER MD ORDER. VS WNL.
[2022-03-07] MEDS: IV LR 1000 ML 1,000 ML IV SCH ×2 (02:45→17:51)
[2022-03-07] MEDS: VANCOMYCIN 1.25 GM in IV D5W 250 ML IV SCH ×2 (02:45→14:08)
[2022-03-07 06:13] LABS: BASOPHILS # (AUTO) 0.1 K/uL (0.0-0.2); BASOPHILS % (AUTO) 0.2 % (0.0-2.0); EOSINOPHILS % (AUTO) 0.6 % (0.0-6.0); HEMATOCRIT 33 % (39-51); HEMOGLOBIN 10.5 g/dL (13.5-17.5); LYMPHOCYTES # (AUTO) 1.8 K/uL (0.8-4.8); LYMPHOCYTES % (AUTO) 5.6 % (20.0-44.0); MEAN CORPUSCULAR HGB CONC 32 g/dl (31.0-36.0); MEAN CORPUSCULAR VOLUME 84 fL (80-96); MONOCYTES # (AUTO) 2.1 K/uL (0.1-1.30); MONOCYTES % (AUTO) 6.8 % (2.0-12.0); NEUTROPHILS # (AUTO) 27.4 K/uL (1.8-8.9); NEUTROPHILS % (AUTO) 86.8 % (43.0-81.0); PLATELET COUNT (AUTO) 589 K/uL (150-450); RED BLOOD CELL COUNT(AUTO) 3.92 MIL/uL (4.5-6.0)
[2022-03-07 06:40] LABS: WHITE BLOOD COUNT (AUTO) 31.6 K/uL (4.3-11.0)
--- NOTE | 2022-03-07 06:44 | NUR ---
RN CLOSING NOTES PT LAYING IN BED, ASLEEP, AWAKENS TO VERBAL STIMULI. AOX4, ABLE TO MAKE NEEDS KNOWN. ON RA AND TOLERATING WELL. NO SOB NOTED. NO SIGNS OF DISTRESS. IV ACCESS IN L HAND #18G AND LFA #20G RUNNING LR @ 75 ML/HR. ALL ORDERS CARRIED OUT. ALL NEEDS MET. PT KEPT CLEAN AND DRY. SAFETY PRECAUTIONS IN PLACE: BED IN LOWEST LOCKED POSITION, SIDERAILS UP X2, BED IN LOWEST, LOCKED POSITION. CALL LIGHT AND TABLE WITHIN REACH. WILL ENDORSE TO ONCOMING SHIFT FOR DANISHA.
[2022-03-07 06:56] LABS: CALCIUM, SERUM 7.8 mg/dL (8.5-10.1); CREATININE 0.9 mg/dL (0.6-1.3); MAGNESIUM 2.2 mg/dL (1.8-2.4); PHOSPHORUS 3.3 mg/dL (2.5-4.9); POTASSIUM 3.5 mmol/L (3.5-5.1)
[2022-03-07 07:06] LABS: AFP, TUMOR MARKER 0.9 ng/mL (0.0-8.4)
--- NOTE | 2022-03-07 07:30 | NUR ---
RN OPENING NOTES RECEIVED PATIENT LAYING IN BED, ASLEEP, EASILY AROUSED. AOX4, VERBALLY RESPONSIVE AND ABLE TO MAKE NEEDS KNOWN. ON ROOM AIR, TOLERATING WELL. NO SOB NOTED. NO SIGNS OF ACUTE DISTRESS. NOTED WITH IV ACCESS ON L HAND #18G AND LFA #20G RUNNING LR @ 75 ML/HR. SAFETY PRECAUTIONS IN PLACE. BED IN LOWEST LOCKED POSITION, SIDE RAILS UP X2, CALL LIGHT AND TABLE WITHIN REACH. WILL CONTINUE TO MONITOR PATIENT.
[2022-03-07 08:00] VITALS: BP 106/69
[2022-03-07] MEDS: PANTOPRAZOLE 40 MG TABLET.DR PO SCH (08:13)
[2022-03-07] MEDS: chlorproMAZINE HCL 25 MG TABLET PO SCH ×3 (08:13→17:03)
[2022-03-07] MEDS: ENOXAPARIN SODIUM 40 MG/0.4 ML DISP.SYRIN SQ SCH (10:22)
--- NOTE | 2022-03-07 15:30 | NUR ---
RN NOTES F/C REMOVED, PATIENT ABLE TO TOLERATE PROCEDURE WELL. WILL MONITOR FOR URINARY RETENTION.
[2022-03-07] MEDS: METOCLOPRAMIDE HCL 10 MG/2 ML VIAL IV PRN (15:44)
[2022-03-07 16:00] VITALS: BP 107/69
[2022-03-07 17:41] LABS: BAND % (MANUAL) 2 % (0.0-5.0); LYMPHOCYTES % (MANUAL) 11 % (16-48); MONOCYTES % (MANUAL) 5 % (0-11.0); NEUTROPHILS % (MANUAL) 81 (42-76); REACTIVE LYMPHOCYTES 1 % (0-0)
--- NOTE | 2022-03-07 18:51 | NUR ---
RN CLOSING NOTES PATIENT RESTING IN BED, EASILY AROUSED. AOX4, VERBALLY RESPONSIVE AND ABLE TO MAKE NEEDS KNOWN. REMAINS STABLE ON ROOM AIR, NO SOB NOTED, BREATHING EVEN AND UNLABORED. NO SIGNS OF ACUTE RESPIRATORY DISTRESS. IV ACCESS ON L HAND #18G AND LFA #20G, INTACT AND PATENT RUNNING LR @ 75 ML/HR. ABDOMINAL INCISION WITH DRESSING C/D/I. NAVEED TO DRAINAGE BULB: RIGHT NAVEED - ABLE TO [id number], LEFT NAVEED - ABLE TO EMPTY 30CC. SAFETY PRECAUTIONS MAINTAINED. BED IN LOWEST LOCKED POSITION, SIDE RAILS UP X2, CALL LIGHT AND TABLE WITHIN REACH. WILL ENDORSE TO NEXT SHIFT FOR DANISHA.
--- NOTE | 2022-03-07 19:45 | NUR ---
RN OPENING NOTES RECEIVED PT IN BED, SITTING UPRIGHT, EATING. AOx4, ABLE TO MAKE NEEDS KNOWN. ON RA AND TOLERATING WELL. NO SOB NOTED. NO S/SX OF RESPIRATORY DISTRESS NOTED. IV ACCESS IN L HAND #18G AND LFA #20G RUNNING LR @ 75ML/HR. SAFETY PRECAUTIONS IN PLACED: BED IN LOWEST, LOCKED POSITION, SIDERAILS UPx2, BRAKES ON. TABLE AND CALL LIGHT WITHIN REACH. ALL NEEDS MET AT THIS TIME.
[2022-03-07 20:00] VITALS: BP 107/56
--- NOTE | 2022-03-07 21:32 | NUR ---
RN NOTES ADMINISTERED MORPHINE FOR PAIN PER MD ORDER. VS WNL.
[2022-03-08] MEDS: MORPHINE SULFATE INJ 4 MG/ML DISP.SYRIN IV PRN ×3 (01:26→20:51)
--- NOTE | 2022-03-08 01:26 | NUR ---
RN NOTES ADMINISTERED MORPHINE PER MD ORDER. VS WNL.
[2022-03-08] MEDS: VANCOMYCIN 1.25 GM in IV D5W 250 ML IV SCH ×2 (02:25→13:37)
[2022-03-08] MEDS: IV LR 1000 ML 1,000 ML IV SCH ×2 (04:43→18:03)
[2022-03-08 05:59] LABS: BASOPHILS % (AUTO) 0.1 % (0.0-2.0); EOSINOPHILS % (AUTO) 0.4 % (0.0-6.0); HEMATOCRIT 34 % (39-51); LYMPHOCYTES # (AUTO) 1.8 K/uL (0.8-4.8); LYMPHOCYTES % (AUTO) 5.3 % (20.0-44.0); MEAN CORPUSCULAR HGB CONC 32 g/dl (31.0-36.0); MEAN CORPUSCULAR VOLUME 85 fL (80-96); NEUTROPHILS # (AUTO) 29.7 K/uL (1.8-8.9); NEUTROPHILS % (AUTO) 88.2 % (43.0-81.0); PLATELET COUNT (AUTO) 514 K/uL (150-450); RED BLOOD CELL COUNT(AUTO) 4.06 MIL/uL (4.5-6.0)
[2022-03-08 06:12] LABS: CALCIUM, SERUM 7.6 mg/dL (8.5-10.1); CREATININE 0.9 mg/dL (0.6-1.3); MAGNESIUM 2.2 mg/dL (1.8-2.4); PHOSPHORUS 3.2 mg/dL (2.5-4.9); POTASSIUM 3.6 mmol/L (3.5-5.1)
--- NOTE | 2022-03-08 06:39 | NUR ---
RN CLOSING NOTES PT LAYING IN BED, AWAKE. AOx4, ABLE TO MAKE NEEDS KNOWN. ON RA AND TOLERATING WELL. NO SOB NOTED. NO S/SX OF RESPIRATORY DISTRESS NOTED. IV ACCESS IN L HAND #18G AND LFA #20G RUNNING LR @ 75ML/HR. ALL ORDERS CARRIED OUT. ALL NEEDS MET. PT KEPT CLEAN AND DRY. SAFETY PRECAUTIONS IN PLACED: BED IN LOWEST, LOCKED POSITION, SIDERAILS UPx2, BRAKES ON. TABLE AND CALL LIGHT WITHIN REACH. WILL ENDORSE TO ONCOMING SHIFT FOR DANISHA.
--- NOTE | 2022-03-08 07:30 | NUR ---
MS RN OPENING NOTE PATIENT RECEIVED ON SHIFT IN BED AND SLEEPING. REMAINS A/O X4 AND ABLE TO VERBALIZE ALL NEEDS. IV ACCESS TO RFA IN TACT AND PATENT WITH LACTATED RINGERS RUNNING CONTINUOUSLY @ 75ML/HR. NO CURRENT C/O NAUSEA UPON ASSESSMENT. DRAINS TO L/R SIDE ABDOMEN REMAIN INTACT WITH MINIMAL AMOUNT OF DRAINAGE AT THIS TIME. SAFETY MEASURES INTACT, CALL LIGHT WITHIN REACH. WILL CONT TO MONITOR.
[2022-03-08 07:53] LABS: WHITE BLOOD COUNT (AUTO) 33.7 K/uL (4.3-11.0)
[2022-03-08 08:00] VITALS: BP 104/64
[2022-03-08] MEDS: ENSURE ENLIVE 237 ML LIQUID (VANILLA) PO SCH (08:46)
[2022-03-08] MEDS: PANTOPRAZOLE 40 MG TABLET.DR PO SCH (08:46)
[2022-03-08] MEDS: chlorproMAZINE HCL 25 MG TABLET PO SCH ×3 (08:46→18:04)
[2022-03-08 10:17] LABS: BAND % (MANUAL) 7 % (0.0-5.0); LYMPHOCYTES % (MANUAL) 2 % (16-48); MONOCYTES % (MANUAL) 7 % (0-11.0); NEUTROPHILS % (MANUAL) 84 (42-76)
[2022-03-08] MEDS: ENOXAPARIN SODIUM 40 MG/0.4 ML DISP.SYRIN SQ SCH (11:11)
[2022-03-08] MEDS ORDERED: KETOROLAC TROMETHAMINE INJ 30 MG/ML VIAL IV PRN (14:00)
[2022-03-08] MEDS ORDERED: POTASSIUM CHLORIDE 20 MEQ TAB.PRT.SR PO ONE (14:00)
[2022-03-08 16:00] VITALS: BP 106/62
--- NOTE | 2022-03-08 18:56 | NUR ---
RN CLOSING NOTE PATIENT REMAINED IN BED AND INTERMITTENTLY SLEEPING THROUGHOUT SHIFT. C/O PAIN 9/10 TO ABDOMINAL AREA. RECEIVED MORPHINE @ 0846. REMAINS A/O X4 AND ABLE TO VERBALIZE ALL NEEDS. IV ACCESS TO RFA REMAINS IN TACT AND PATENT WITH LACTATED RINGERS RUNNING CONTINUOUSLY @ 75ML/HR. NO C/O NAUSEA THROUGHOUT SHIFT.TOLERATED MINIMAL AMOUNTS OF MEAL INTAKE. CONTINUES TO BE CONTINENT WITH USE OF URINAL. TOTAL URINE OUTPUT OF 800ML CLEAR DARK YELLOW URINE. DRAINS TO L/R SIDE ABDOMEN REMAIN INTACT WITH OUTPUT OF 75ML TO LEFT AND 30 TO RIGHT. SAFETY MEASURES INTACT, CALL LIGHT WITHIN REACH. WILL CONT TO MONITOR.
--- NOTE | 2022-03-08 19:43 | NUR ---
RN OPENING NOTES RECEIVED PT IN BED, SITTING UPRIGHT, SLEEPING. AOx4, ABLE TO MAKE NEEDS KNOWN. ON RA AND TOLERATING WELL. NO SOB NOTED. NO S/SX OF RESPIRATORY DISTRESS NOTED. IV ACCESS IN RFA #18G RUNNING LR @ 75ML/HR. SAFETY PRECAUTIONS IN PLACED: BED IN LOWEST, LOCKED POSITION, SIDERAILS UPx2, BRAKES ON. TABLE AND CALL LIGHT WITHIN REACH. ALL NEEDS MET AT THIS TIME.
[2022-03-08 20:00] VITALS: BP 109/55
--- NOTE | 2022-03-08 20:52 | NUR ---
RN NOTES ADMINISTERED MORPHINE PER MD ORDER FOR PAIN 03/07. VS WNL.
[2022-03-09] MEDS: VANCOMYCIN 1.25 GM in IV D5W 250 ML IV SCH (01:32)
[2022-03-09 06:45] LABS: BASOPHILS # (AUTO) 0.1 K/uL (0.0-0.2); BASOPHILS % (AUTO) 0.2 % (0.0-2.0); EOSINOPHILS % (AUTO) 0.5 % (0.0-6.0); HEMATOCRIT 33 % (39-51); HEMOGLOBIN 10.4 g/dL (13.5-17.5); LYMPHOCYTES # (AUTO) 1.2 K/uL (0.8-4.8); LYMPHOCYTES % (AUTO) 3.4 % (20.0-44.0); MEAN CORPUSCULAR HGB CONC 32 g/dl (31.0-36.0); MEAN CORPUSCULAR VOLUME 84 fL (80-96); MONOCYTES # (AUTO) 2.2 K/uL (0.1-1.30); MONOCYTES % (AUTO) 6.3 % (2.0-12.0); NEUTROPHILS # (AUTO) 31.8 K/uL (1.8-8.9); NEUTROPHILS % (AUTO) 89.6 % (43.0-81.0); PLATELET COUNT (AUTO) 537 K/uL (150-450); RED BLOOD CELL COUNT(AUTO) 3.87 MIL/uL (4.5-6.0)
--- NOTE | 2022-03-09 06:52 | NUR ---
RN CLOSING NOTES PT IN BED, SITTING UPRIGHT, SLEEPING. AOx4, ABLE TO MAKE NEEDS KNOWN. ON RA AND TOLERATING WELL. NO SOB NOTED. NO S/SX OF RESPIRATORY DISTRESS NOTED. IV ACCESS IN RFA #18G RUNNING LR @ 75ML/HR. ALL ORDERS CARRIED OUT. ALL NEEDS MET. PT KEPT CLEAN AND DRY. TREATED PAIN THROUGHOUT SHIFT. SAFETY PRECAUTIONS IN PLACED: BED IN LOWEST, LOCKED POSITION, SIDERAILS UPx2, BRAKES ON. TABLE AND CALL LIGHT WITHIN REACH. WILL ENDORSE TO ONCOMING SHIFT FOR DANISHA.
[2022-03-09 07:03] LABS: CALCIUM, SERUM 7.4 mg/dL (8.5-10.1); CREATININE 0.8 mg/dL (0.6-1.3); MAGNESIUM 2.1 mg/dL (1.8-2.4); POTASSIUM 3.4 mmol/L (3.5-5.1)
--- NOTE | 2022-03-09 07:40 | NUR ---
RN OPENING NOTES PT IN BED SITTING WITH HEAD OF BED ELEVATED.AOx4, ABLE TO MAKE NEEDS KNOWN. ON RA AND TOLERATING WELL AT 96%. NO SOB NOTED, BREATHING EVEN AND UNLABORED. IV ACCESS IN RFA #18G RUNNING LR @ 75ML/HR. PATIENT HAS ABDOMEN COVERED WITH DRY DRESSING, S/P EXPLORE LAP, PATIENT HAS BECKY NOR[place]OD DRAINS LEFT AND RIGHT. SAFETY PRECAUTIONS IN PLACED: BED IN LOWEST, LOCKED POSITION, SIDERAILS UPx2, BRAKES ON. TABLE AND CALL LIGHT WITHIN REACH. WILL CONTINUE TO MONITOR DURING MY SHIFT.
[2022-03-09 07:52] LABS: WHITE BLOOD COUNT (AUTO) 35.5 K/uL (4.3-11.0)
[2022-03-09] MEDS: PANTOPRAZOLE 40 MG TABLET.DR PO SCH (07:56)
[2022-03-09 08:00] VITALS: BP 127/71
--- NOTE | 2022-03-09 08:05 | NUR ---
RN NOTES - CRITICAL LAB RESULT RECEIVED A CALL FROM SERVICE RIG OPERATOR JAME REGARDING PTS' WBC COUNT 35.5, RELAYED TO DR AUGUSTINE STRATTON AT 0805. CONFIRMED, ACKNOWLEDGE, NO ORDERS GIVEN.
[2022-03-09] MEDS: IV LR 1000 ML 1,000 ML IV SCH (08:19)
[2022-03-09] MEDS: chlorproMAZINE HCL 25 MG TABLET PO SCH ×3 (08:46→16:54)
[2022-03-09] MEDS: METOCLOPRAMIDE HCL 10 MG/2 ML VIAL IV PRN ×3 (08:49→21:32)
[2022-03-09] MEDS: ENSURE ENLIVE 237 ML LIQUID (VANILLA) PO SCH (08:49)
[2022-03-09] MEDS: ENOXAPARIN SODIUM 40 MG/0.4 ML DISP.SYRIN SQ SCH (09:23)
[2022-03-09] MEDS ORDERED: POTASSIUM CHLORIDE 20 MEQ TAB.PRT.SR PO SCH (10:00)
[2022-03-09 13:00] LABS: BAND % (MANUAL) 5 % (0.0-5.0); LYMPHOCYTES % (MANUAL) 2 % (16-48); METAMYELOCYTES % 2 % (0-0); MONOCYTES % (MANUAL) 5 % (0-11.0); MYELOCYTES % 2 % (0-0); NEUTROPHILS % (MANUAL) 84 (42-76)
[2022-03-09] MEDS: VANCOMYCIN 1 GM in IV D5W 250 ML IV SCH (13:08)
[2022-03-09] MEDS: MORPHINE SULFATE INJ 4 MG/ML DISP.SYRIN IV PRN (14:13)
[2022-03-09 16:00] VITALS: BP 124/60
--- NOTE | 2022-03-09 16:50 | NUR ---
RN NOTES - DR CALLAHAN CALLED TO CHECK IF PT HAS PASSED STOOL ALREADY, PT REPORTS NONE, PATIENT ABLE TO PASS GAS, ABLE TO EAT, AND STAND UP PER PT THIS MORNING. DR CALLAHAN ORDERED FOR LR IV TO DC'D CARRIED OUT. SENT PICTURES OF THE INCISION SITES, NAVEED DRAINS, AND SKIN CONDITION WELL. CHANGED DRESSING WELL.
--- NOTE | 2022-03-09 18:52 | NUR ---
RN CLOSING NOTES PT LYING IN BED WITH HEAD OF BED ELEVATED.AOx4, ABLE TO MAKE NEEDS KNOWN. ON RA AND TOLERATING WELL AT 96%. NO SOB NOTED, BREATHING EVEN AND UNLABORED. IV ACCESS IN RFA #18G SL, PATEN, FLUSHING WELL. WOUND CARE PROVIDED ON THE SURGICAL SITE, CHANGED DRESSINGS. BECKY NORWOOD DRAINS LEFT AND RIGHT DRAINED 50 ML AND 10 ML RESPECTIVELY. SAFETY PRECAUTIONS MAINTAINED: BED IN LOWEST, LOCKED POSITION, SIDERAILS UPx2, BRAKES ON. TABLE AND CALL LIGHT WITHIN REACH.ALL DUE MEDS GIVEN, ALL NEEDS MET. WILL ENDORSE TO TRACKMAN NURSE.
--- NOTE | 2022-03-09 19:33 | NUR ---
MS RN OPENING NOTES: RECEIVED PATIENT AWAKE IN BED, BED IN LOW POSITION MASON LIGHTS WITHIN REACH, NO COMPLAIN OF PAIN AND DISCOMFORT AT THIS TIME, ON ROOM AIR SATURATING WELL, PATIENT IS A/OX4 ON BED REST S/P EXPLORE LAP AT 10/4 WITH BILATERAL NAVEED DRAIN ON LOWER ABDOMEN, IV LINE AT RFA#18 SL, PATIENT KEPT CLEAN AND DRY ALL NEEDS MET WILL CONTINUE TO MONITOR.
[2022-03-09 20:00] VITALS: BP 122/65
[2022-03-09 21:30] VITALS: BP 132/63
[2022-03-10] MEDS: MORPHINE SULFATE INJ 4 MG/ML DISP.SYRIN IV PRN ×2 (00:54→09:17)
[2022-03-10] MEDS: VANCOMYCIN 1 GM in IV D5W 250 ML IV SCH ×2 (01:34→13:21)
[2022-03-10 05:55] LABS: BASOPHILS % (AUTO) 0.1 % (0.0-2.0); EOSINOPHILS % (AUTO) 0.3 % (0.0-6.0); HEMATOCRIT 31 % (39-51); LYMPHOCYTES # (AUTO) 1.6 K/uL (0.8-4.8); LYMPHOCYTES % (AUTO) 5.1 % (20.0-44.0); MEAN CORPUSCULAR HGB CONC 33 g/dl (31.0-36.0); MEAN CORPUSCULAR VOLUME 83 fL (80-96); MONOCYTES # (AUTO) 2.3 K/uL (0.1-1.30); MONOCYTES % (AUTO) 7.1 % (2.0-12.0); NEUTROPHILS # (AUTO) 28.1 K/uL (1.8-8.9); NEUTROPHILS % (AUTO) 87.4 % (43.0-81.0); PLATELET COUNT (AUTO) 568 K/uL (150-450); RED BLOOD CELL COUNT(AUTO) 3.74 MIL/uL (4.5-6.0)
--- NOTE | 2022-03-10 06:26 | NUR ---
RN CLOSING NOTES: PATIENT SLEEP IN BED COMFORTABLY, BED IN LOW POSITION, CALL LIGHTS WITHIN REACH, NO COMPLAIN OF PAIN AND DISCOMFORT AT THIS TIME, ON ROOM AIR SATURATING WELL, PATIENT IS A/OX4 ABLE TO MAKE NEEDS KNOWN, ABDOMINAL DRESSING CHANGES, WITH NAVEED DRAIN REPLACE BILATERAL LOWER ABDOMEN INTACT, PATIENT KEPT CLEAN AND DRY ALL NEEDS MET ENDORSE TO INCOMING SHIFT.
[2022-03-10 06:35] LABS: CALCIUM, SERUM 7.4 mg/dL (8.5-10.1); MAGNESIUM 2.1 mg/dL (1.8-2.4); PHOSPHORUS 3.3 mg/dL (2.5-4.9); POTASSIUM 3.5 mmol/L (3.5-5.1)
[2022-03-10 06:53] LABS: WHITE BLOOD COUNT (AUTO) 32.2 K/uL (4.3-11.0)
--- NOTE | 2022-03-10 06:56 | NUR ---
RN NOTES: RECEIVED A CALL FROM SEPTEMBER FOR CRITICAL LAB OF WBC OF 32.2 TRENDING DOWN WITH PREVIOUS WBC AT 35.5
--- NOTE | 2022-03-10 07:35 | NUR ---
RN OPENING NOTES RECEIVED PT IN BED SITTING WITH HEAD OF BED ELEVATED.AOX3-4, ABLE TO MAKE NEEDS KNOWN. ON RA AND TOLERATING WELL AT 96%. NO SOB NOTED, BREATHING EVEN AND UNLABORED. IV ACCESS IN RFA #18G SL, PATENT, FLUSHING WELL, WITHOUT ANY S/SX OF INFILTRATION. PATIENT HAS ABDOMEN INCISIONS COVERED WITH DRY DRESSING, S/P EXPLORE LAP ON BECKY NORWOOD DRAINS ON BOTH LEFT AND RIGHT SIDE, DRAINING WELL, NEGATIVE PRESSURE MAINTAINED. PATIENT HAS INTRACTABLE HICCUPS, DUE MEDS WILL BE GIVEN. SAFETY PRECAUTIONS IN PLACED: BED IN LOWEST, LOCKED POSITION, SIDE-RAILS UPx2, BRAKES ON. TABLE AND CALL LIGHT WITHIN REACH. WILL CONTINUE TO MONITOR DURING MY SHIFT.
[2022-03-10] MEDS: PANTOPRAZOLE 40 MG TABLET.DR PO SCH (07:43)
[2022-03-10 08:00] VITALS: BP 133/69
[2022-03-10] MEDS: ENOXAPARIN SODIUM 40 MG/0.4 ML DISP.SYRIN SQ SCH (09:03)
[2022-03-10] MEDS: chlorproMAZINE HCL 25 MG TABLET PO SCH ×3 (09:04→17:28)
[2022-03-10] MEDS: ENSURE ENLIVE 237 ML LIQUID (VANILLA) PO SCH (09:04)
--- NOTE | 2022-03-10 10:00 | NUR ---
RN NOTES - MD VISIT DR STRATTON'S DIRECTOR ADULT LENI AT BEDSIDE TO CHECK WITH THE PATIENT, NOTED TO HAVE WEEPING/OOZING SURGICAL WOUND, PICTURES TAKEN AND SENT TO DR CALLAHAN. WOUND CARE PROVIDED, DRESSING CHANGED, WILL ORDER INCENTIVE SPIROMETRY ORDERED.
--- NOTE | 2022-03-10 10:15 | NUR ---
RN NOTES - PT PATIENT WAS ABLE TO STAND UP AND DO SIDE STEPS ONLY FOR A SHORT TIME WITH PT.
[2022-03-10 10:27] LABS: BAND % (MANUAL) 9 % (0.0-5.0); BASOPHILS % (MANUAL) 0 % (0.0-2.0); EOSINOPHILS % (MANUAL) 0 % (0-4); LYMPHOCYTES % (MANUAL) 7 % (16-48); MONOCYTES % (MANUAL) 10 % (0-11.0); NEUTROPHILS % (MANUAL) 74 (42-76)
--- NOTE | 2022-03-10 11:13 | NUR ---
RN NOTES - INCENTIVE SPIROMETRY PATIENT ABLE TO TOLERATE UP TO 1500 DURING THIS TIME, PATIENT IS COOPERATIVE. ADVISED TO EXERCISE AT LEAST EVERY HOUR. HEALTH TEACHINGS GIVEN REGARDING ITS IMPORTANCE TO PREVENT LUNG COLLAPSE AND INFECTION. PATIENT VERBALIZED UNDERSTANDING
[2022-03-10 16:00] VITALS: BP 128/51
[2022-03-10] MEDS ORDERED: AMIODARONE 150 MG in IV D5W 100 ML IV ONE (18:00)
[2022-03-10] MEDS ORDERED: AMIODARONE 450 MG in IV D5W 241 ML IV PRN (18:00)
--- NOTE | 2022-03-10 18:30 | NUR ---
RN NOTE - TRANSFER TO SU RECEIVED AN ORDER FROM DR STRATTON TO TRANSFER PT TO TELE, INITIAL READING WAS SINUS TACHY 130 BPM, SHORTLY AFTER, AMIODARONE DRIP WAS ORDERED, PROMPTED TO TRANSFER PT TO SU. PATIENT WAS TRANSPORTED ON HIS BED WITH ALL HIS BELONGINGS, ATTACHED TO DEFIBRILLATOR MACHINE. PT ALERT AND ORIENTED X4, VERBALLY RESPONSIVE, NO SOB NOTED, RESPIRATION EVEN AND UNLABORED, NOT IN DISTRESS, SATURATING @97% RA. ABDOMINAL DRESSING NOTED DRY AND INTACT, NO DRAINAGE NOTED. NAVEED NOTED INTACT LEFT BULB DRAINING PUS COLORED DRAINAGE OF ABOUT 30 ML, RIGHT BULB DRAINING SEROSANGUINOUS FLUID AROUND 5ML. LATEST TELE READING WAS SINUS TACHY 114 BPM, PATIENT HAS INTACT IV ACCESS RFA G#18 SL, FLUSHING WELL. PATIENT WAS RECEIVED BY GEORGE ANN AT 1825. ALL QUESTIONS ADDRESSED.
--- NOTE | 2022-03-10 18:38 | NUR ---
RN OPENING NOTES PATIENT FROM [facility], PATIENT IN BED, ALERT AND ORIENTED X4, VERBALLY RESPONSIVE, NO SOB NOTED, RESPIRATION EVEN AND UNLABORED, NOT IN DISTRESS, SATURATING @96% RA. ABDOMINAL DRESSING NOTED DRY AND INTACT, NO DRAINAGE NOTED. NAVEED NOTED INTACT, NOTED RIGHT NAVEED WITH 5ML OF SEROSANGUINEOUS DRAINAGE, LEFT NAVEED NOTED WITH 40CC PUS COLORED DRAINAGE. DENIES PAIN AT THIS TIME. ON TELE MONITORING WITH SINUS TACHY READING RN=216, INFORMED DR. STRATTON. ORIENTED TO THE USE OF CALL LIGHT. BED IN LOWEST POSITION. SAFETY PRECAUTION MAINTAINED. CALL LIGHT WITHIN REACH. WILL ENDORSE TO INCOME TAX EXPERT NURSE FOR DANISHA.
[2022-03-10] MEDS: LACTULOSE 10 G/15 ML UDC (PYXIS) PO SCH (18:53)
--- NOTE | 2022-03-10 19:06 | NUR ---
RN NOTES LEFT FOREARM IV ACCESS GAUGE 22, RIGHT FOREARM IV ACCESS GAUGE 20, PATENT AND INTACT,WILL ENDORSE TO INSPECTOR FINAL ASSEMBLY ELECTRICAL NURSE FOR DANISHA. Addendum: 03/10/22 at 1919 by KIMBER OMYA RN CORRECTION LEFT ARM
--- NOTE | 2022-03-10 19:18 | NUR ---
telephone quotation clerk note patient in tele monitor st hr [address] Wes Ferrera and asked about amidarone drip to start ,ordered ekg , order carried out Addendum: 03/10/22 at 1920 by MARISSA RODRIGUEZ RN new hl inserted on rt fa and lt fa mickey 22 with good blood return Addendum: 03/10/22 at 1920 by MARISSA RODRIGUEZ RN called rt to do ekg will f\u and endorsed to hotel night auditor amanda
--- NOTE | 2022-03-10 19:39 | NUR ---
RN NOTE REPEAT EKG RESULT SHOWS SINUS TACH, HR 113. RELAYED TO DR STRATTON. WITH ORDER TO D/C AMIODARONE AND START METOPROLOL 25MG PO BID.
--- NOTE | 2022-03-10 19:40 | NUR ---
RN NOTE RECEIVED PT LOOKS DROWSY BUT EASILY AROUSABLE AND COMMUNICATES APPROPRIATELY. DENIES ANY PAIN AT THIS TIME. ABDOMINAL DRESSING CLEAN DRY AND INTACT, WITH NAVEED DRAINS ON RIGHT AND LEFT INTACT. ALL SAFETY MEASURES IN PLACE, CALL LIGHT WITHIN REACH AT ALL TIMES. WILL CONTINUE TO MONITOR.
[2022-03-10 20:00] VITALS: BP 124/67
[2022-03-10] MEDS: METOPROLOL TARTRATE 25 MG TABLET PO SCH (20:19)
[2022-03-11] VITALS: BP 124/78
[2022-03-11] MEDS: LACTULOSE 10 G/15 ML UDC (PYXIS) PO SCH ×4 (00:12→17:34)
[2022-03-11] MEDS ORDERED: VANCOMYCIN 1 GM VIAL ONE (02:17)
[2022-03-11] MEDS: VANCOMYCIN 1 GM in IV D5W 250 ML IV SCH ×2 (02:19→13:08)
[2022-03-11 04:00] VITALS: BP 111/64
[2022-03-11 06:36] LABS: BASOPHILS % (AUTO) 0.1 % (0.0-2.0); EOSINOPHILS % (AUTO) 0.4 % (0.0-6.0); HEMATOCRIT 32 % (39-51); HEMOGLOBIN 10.1 g/dL (13.5-17.5); LYMPHOCYTES # (AUTO) 1.4 K/uL (0.8-4.8); LYMPHOCYTES % (AUTO) 5.3 % (20.0-44.0); MEAN CORPUSCULAR HGB CONC 32 g/dl (31.0-36.0); MEAN CORPUSCULAR VOLUME 83 fL (80-96); MONOCYTES # (AUTO) 1.9 K/uL (0.1-1.30); MONOCYTES % (AUTO) 7.3 % (2.0-12.0); NEUTROPHILS # (AUTO) 22.3 K/uL (1.8-8.9); NEUTROPHILS % (AUTO) 86.9 % (43.0-81.0); PLATELET COUNT (AUTO) 638 K/uL (150-450); RED BLOOD CELL COUNT(AUTO) 3.78 MIL/uL (4.5-6.0); WHITE BLOOD COUNT (AUTO) 25.8 K/uL (4.3-11.0)
--- NOTE | 2022-03-11 07:00 | NUR ---
RN NOTE PT AWAKE. NOT IN ANY DISTRESS. PT STATED HE GETS PAIN BUT TOLERABLE AND ONLY WHEN COUGHING, REFUSED TO HAVE ANY PAIN MEDICATION. ABDOMINAL SURGICAL DRESSING INTACT, NOTED WITH MINIMAL DRAINAGE. NAVEED ON R ABD WITH 5ML SANGUINEOUS DRAINAGE AND LEFT ABD NAVEED DRAIN WITH 25 ML PURULENT DRAINAGE. ABLE TO USE URINAL WITH ADEQUATE AMOUNT OF URINE OUTPUT. STILL WITH NO BM, BUT PASSING GAS. DUE LACTULOSE GIVEN. REMAIN AFEBRILE. ABLE TO MAKE NEEDS KNOWN. CALL LIGHT WITHIN REACH AT ALL TIMES. Addendum: 03/11/22 at 0734 by DASHA FU RN PT SR ON TELE MONITOR WITH HR OF 88
[2022-03-11 08:00] VITALS: BP 120/70
[2022-03-11] MEDS: METOPROLOL TARTRATE 25 MG TABLET PO SCH ×2 (08:27→20:41)
[2022-03-11] MEDS: PANTOPRAZOLE 40 MG TABLET.DR PO SCH (08:27)
[2022-03-11] MEDS: ENSURE ENLIVE 237 ML LIQUID (VANILLA) PO SCH (08:28)
[2022-03-11 08:29] LABS: CALCIUM, SERUM 7.8 mg/dL (8.5-10.1); MAGNESIUM 2.4 mg/dL (1.8-2.4); PHOSPHORUS 3.8 mg/dL (2.5-4.9); POTASSIUM 3.5 mmol/L (3.5-5.1)
[2022-03-11 09:31] LABS: BAND % (MANUAL) 2 % (0.0-5.0); LYMPHOCYTES % (MANUAL) 8 % (16-48); MONOCYTES % (MANUAL) 6 % (0-11.0); NEUTROPHILS % (MANUAL) 84 (42-76)
[2022-03-11] MEDS: ENOXAPARIN SODIUM 40 MG/0.4 ML DISP.SYRIN SQ SCH (09:33)
[2022-03-11 12:00] VITALS: BP 130/79
[2022-03-11 16:00] VITALS: BP 118/65
[2022-03-11] MEDS ORDERED: LIDOCAINE 1% INJ 50 ML MDV IJ ONE (16:30)
--- NOTE | 2022-03-11 19:00 | NUR ---
RN CLOSING NOTES: PATIENT SLEEP IN BED COMFORTABLY, BED IN LOW POSITION, CALL LIGHTS WITHIN REACH, NO COMPLAIN OF PAIN AND DISCOMFORT AT THIS TIME, ON ROOM AIR SATURATING WELL, PATIENT IS A/OX2-3 ABLE TO MAKE NEEDS KNOWN, ABDOMINAL DRESSING REINFORCED ONLY, NAVEED DRAIN 30 ML REMOVED AND EMPTIED. PATIENT KEPT CLEAN AND DRY ALL NEEDS MET ENDORSE TO INCOMING SHIFT. PATIENT ON ROOM AIR NO S/S OF DISTRESS. PATIENT WAS SUPPOSED TO HAVE A BONE MARROW HE SIGNED THE CONSENT FORM IN THE MORNING BUT AT 1830 DR JOSE CAME TO DO THE BIOPSY PATIENT REFUSED AND WILL DO THE PROCEDURE TOMORROW 03/12/2022.
--- NOTE | 2022-03-11 19:30 | NUR ---
SU RN OPENING NOTES RECEIVED PATIENT IN BED, ALERT AND ORIENTED X4, ON RA NO S/S OF ACUTE DISTRESS, IV ACCESS RHAND #20G AND LFA #22G BOTH INTACT AND PATENT. ABDOMINAL DRESSING NOTED DRY AND INTACT, NO DRAINAGE NOTED. BILATERAL NAVEED DRAIN NOTED INTACT,AND DRAINING. DENIES PAIN AT THIS TIME. ON TELE MONITORING SR HR 85, VSS. ALL SAFETY MEASURES IN PLACE, CALL LIGHT WITHIN REACH AT ALL TIMES. WILL CONTINUE TO MONITOR THROUGHOUT SHIFT.
[2022-03-11 20:00] VITALS: BP 119/72
[2022-03-12] VITALS: BP 128/72
[2022-03-12] MEDS: LACTULOSE 10 G/15 ML UDC (PYXIS) PO SCH ×5 (00:02→23:21)
[2022-03-12] MEDS: VANCOMYCIN 1 GM in IV D5W 250 ML IV SCH ×2 (02:27→14:05)
[2022-03-12 04:00] VITALS: BP 106/61
[2022-03-12 06:37] LABS: BASOPHILS % (AUTO) 0.1 % (0.0-2.0); EOSINOPHILS % (AUTO) 0.3 % (0.0-6.0); HEMATOCRIT 32 % (39-51); HEMOGLOBIN 10.4 g/dL (13.5-17.5); LYMPHOCYTES # (AUTO) 1.4 K/uL (0.8-4.8); LYMPHOCYTES % (AUTO) 5.6 % (20.0-44.0); MEAN CORPUSCULAR HGB CONC 33 g/dl (31.0-36.0); MEAN CORPUSCULAR VOLUME 83 fL (80-96); MONOCYTES % (AUTO) 8.1 % (2.0-12.0); NEUTROPHILS # (AUTO) 20.8 K/uL (1.8-8.9); NEUTROPHILS % (AUTO) 85.9 % (43.0-81.0); PLATELET COUNT (AUTO) 711 K/uL (150-450); RED BLOOD CELL COUNT(AUTO) 3.83 MIL/uL (4.5-6.0); WHITE BLOOD COUNT (AUTO) 24.2 K/uL (4.3-11.0)
[2022-03-12 06:44] LABS: ALBUMIN 1.6 g/dL (3.4-5.0); BILIRUBIN,TOTAL 0.4 mg/dL (0.2-1.0); CALCIUM, SERUM 7.6 mg/dL (8.5-10.1); POTASSIUM 3.2 mmol/L (3.5-5.1)
--- NOTE | 2022-03-12 07:40 | NUR ---
SU RN CLOSING NOTES PATIENT IN BED, ALERT AND ORIENTED X3, EPISODES OF DISOREINTATION. ON RA NO S/S OF ACUTE DISTRESS, IV ACCESS RHAND #20G AND LFA #22G BOTH INTACT AND PATENT. ABDOMINAL DRESSING NOTED DRY AND INTACT, NO DRAINAGE NOTED. BILATERAL NAVEED DRAIN NOTED INTACT,AND DRAINING L SIDE DRAINED 50ML AND R SIDE DRAINED 10ML. DENIES PAIN AT THIS TIME. ON TELE MONITORING SR HR 87, PATEINT ABLE TO MAKE NEEDS KNOWN. ALL DUE MEDS GIVEN. VSS. ALL SAFETY MEASURES IN PLACE, CALL LIGHT WITHIN REACH AT ALL TIMES. WILL ENDORSE TO MORNING SHIFT.
[2022-03-12] MEDS: PANTOPRAZOLE 40 MG TABLET.DR PO SCH (07:50)
[2022-03-12 08:00] VITALS: BP 110/67
--- NOTE | 2022-03-12 08:20 | NUR ---
RN NOTE FALL REPORT PATIENT TRIED TO USE THE RESTROOM DUE TO FEELING OF HAVING BOWEL MOVEMENT, THE BED ALARM WAS ON BUT VERY WEAK LOW BEEPING SO NOBODY HEARD THE ALARM. I WAS IN ROOM 105 TRYING TO START THE BLOOD TRANSFUSION THAT I HEARD THE STAFF THAT MY PATIENT IS ON THE FLOOR. I IMMEDIATELY REACHED TO THE PATIENT AND FOUND HIM ON THE FLOOR ON HIS BACK. HIS HEAD AND UPPER EXTREMITIES IN THE OLMSTEAD AND HIS LEGS IN HIS ROOM. PATIENT WAS RETURNED TO BED AND ASSESSED FOR INJURY NO BRUISES NO FRACTURE NOTED, CT FROM HIS HEAD WAS DONE AND ALL THE FINDINGS WITHIN NORMAL. DR AUGUSTINE STRATTON NOTIFIED, CHARGE NURSE DEREK SPENCE WAS INVOLVED TO PUT PATIENT BACK INTO HIS BED. THE BED WAS AT LOWEST POSITION, BED RAILS WERE UP X3, BUT HE MADE IT TO JUMP OVER IT HE THOUGHT HE IS STRONG ENOUGH AND DID NOT USE THE CALL LIGHT FOR HAVING HELP WHEN HE HAS THE FEELING OF HAVING A BOWEL MOVEMENT BEFORE THE FALL. PATIENT WAS ASKED ABOUT TIME, PLACE, PERSON AFTER FALL HE WAS ORIENTED AND GAVE HIS SISTER'S PHONE NUMBER SO WE CAN NOTIFY HER. THE SISTER'S NAME TESS PHONE NUMBER: [phone]. INCIDENT REPORT WAS COMPLETED BY ME AND I HAVE THE UNIQUE ID NUMBER FOR MY RECORDS. PATIENT'S VITALS BEFORE FALL: T:97.7 HR:74 RR:20 O2:96% BP:110/67 NO MEDICATION ADMINISTRATION BEFORE THE FALL.
--- NOTE | 2022-03-12 08:39 | NUR ---
PATIENT GET UP BYHIMSELF TRIED GO TO RESTROOM,FELL DOWN.ACCOMPANIED BACK TOBED PER PATIENT GOT DIZZY,PER PT "I DONT THINK I BROKE MY LEGS ,BUT I HIT MY HEAD ON MY FLOOR",DR. AUGUSTINE STRATTON NOTIFIED AND ORDERED CT HEAD WITHOUT CONTRAST,PT. VSS,BP 120/69 HR 84, T 98.
--- NOTE | 2022-03-12 08:44 | NUR ---
ABLE TO DO RANGE OF MOTION BLE.
[2022-03-12] MEDS: METOPROLOL TARTRATE 25 MG TABLET PO SCH ×2 (09:14→21:05)
[2022-03-12] MEDS: ENSURE ENLIVE 237 ML LIQUID (VANILLA) PO SCH (09:15)
[2022-03-12] MEDS: ENOXAPARIN SODIUM 40 MG/0.4 ML DISP.SYRIN SQ SCH (09:15)
[2022-03-12 12:00] VITALS: BP 115/70
[2022-03-12] MEDS: POTASSIUM CHLORIDE 20 MEQ POWDER PACKET PO SCH ×2 (12:35→14:06)
--- NOTE | 2022-03-12 15:00 | NUR ---
ct head result relayed to md no new orders.
[2022-03-12 16:00] VITALS: BP 121/68
--- NOTE | 2022-03-12 17:14 | NUR ---
dr. weems at bedside talking regarding the bone marrow biopsy,per patient "i dont want it,i wanted to be transfer to [facility]".dr. dao romero notified.
--- NOTE | 2022-03-12 18:45 | NUR ---
RN CLOSING NOTES: PATIENT Sitting IN BED COMFORTABLY EATING DINNER, BED IN LOW POSITION, CALL LIGHTS WITHIN REACH, NO COMPLAIN OF PAIN AND DISCOMFORT AT THIS TIME, ON ROOM AIR SATURATING WELL, PATIENT IS A/OX3-4 WITH SOME EPISODES OF CONFUSION AT TIMES. ABDOMINAL DRESSING CHANGED, WITH NAVEED DRAIN REPLACE BILATERAL LOWER ABDOMEN INTACT, PATIENT KEPT CLEAN AND DRY ALL NEEDS MET ENDORSE TO CHIEF FINANCIAL OFFICER FOR DANISHA.
--- NOTE | 2022-03-12 19:30 | NUR ---
NEUROLOGY DIRECTOR OPENING NOTE RECEIVED REPORT FROM MARCELA FOR [facility]. PATIENT IN BED AWAKE, ALERT AND ORIENTED X4. CURRENTLY ON RA, TOLERATING WELL. NO S/SX OF ACUTE RESPI DISTRESS NOTED AT THIS TIME. NO SOB, NO PAIN. TELE MONITOR READS SR, HR IN THE 80s. IV ACCESS IN R HAND #20G AND LFA #22G, BOTH INTACT AND PATENT. NO FLUIDS INFUSING. ABDOMINAL DRESSING IN PLACE, DRY AND INTACT, NO DRAINAGE OBSERVED. BILATERAL NAVEED DRAIN IN PLACE, INTACT AND DRAINING. ALL SAFETY MEASURES IN PLACE: BED LOCKED IN LOWEST POSITION, BED ALARM ON, CALL LIGHT WITHIN REACH. WILL CONTINUE TO MONITOR THROUGHOUT SHIFT.
[2022-03-12 20:00] VITALS: BP 134/66
[2022-03-13] VITALS: BP 131/73
[2022-03-13] MEDS: VANCOMYCIN 1 GM in IV D5W 250 ML IV SCH ×2 (01:02→14:07)
[2022-03-13] MEDS: MORPHINE SULFATE INJ 4 MG/ML DISP.SYRIN IV PRN (03:39)
--- NOTE | 2022-03-13 03:50 | NUR ---
RN NOTE PT COMPLAINS OF PAIN IN HIS RIGHT HAND WHERE HIS IV ACCESS IS LOCATED. NO INFILTRATION NOTED. IV LINE STILL PATENT. GAVE MORPHINE IV PRN ORDERED. WILL CONTINUE TO MONITOR.
[2022-03-13 04:00] VITALS: BP 119/69
[2022-03-13] MEDS: LACTULOSE 10 G/15 ML UDC (PYXIS) PO SCH ×4 (06:22→23:15)
[2022-03-13 06:30] LABS: ALBUMIN 1.6 g/dL (3.4-5.0); BILIRUBIN,TOTAL 0.4 mg/dL (0.2-1.0); CALCIUM, SERUM 7.6 mg/dL (8.5-10.1); MAGNESIUM 2.4 mg/dL (1.8-2.4); PHOSPHORUS 4.3 mg/dL (2.5-4.9); POTASSIUM 3.7 mmol/L (3.5-5.1); TOTAL PROTEIN, SERUM 5.9 g/dL (6.4-8.2)
--- NOTE | 2022-03-13 06:36 | NUR ---
HUB BANDER CLOSING NOTE PT REMAINED STABLE T/O THE NIGHT. ALL VS WNL. ON RA, SATING AT >95%. PT HAS R AND L NAVEED DRAIN, WITH MINIMAL OUTPUT COLLECTED AT THE END OF THE SHIFT. ABDOMINAL SURGICAL DRESSING CLEAN AND INTACT. ALL DUE MEDS GIVEN. NEEDS ATTENDED TO. WILL ENDORSE TO AM SHIFT NURSE FOR DANISHA.
[2022-03-13 06:59] LABS: BASOPHILS # (AUTO) 0.1 K/uL (0.0-0.2); BASOPHILS % (AUTO) 0.3 % (0.0-2.0); EOSINOPHILS % (AUTO) 0.5 % (0.0-6.0); HEMATOCRIT 30 % (39-51); HEMOGLOBIN 9.9 g/dL (13.5-17.5); LYMPHOCYTES # (AUTO) 1.4 K/uL (0.8-4.8); LYMPHOCYTES % (AUTO) 6.6 % (20.0-44.0); MEAN CORPUSCULAR HGB CONC 33 g/dl (31.0-36.0); MEAN CORPUSCULAR VOLUME 83 fL (80-96); MONOCYTES % (AUTO) 9.5 % (2.0-12.0); NEUTROPHILS # (AUTO) 17.7 K/uL (1.8-8.9); NEUTROPHILS % (AUTO) 83.1 % (43.0-81.0); PLATELET COUNT (AUTO) 762 K/uL (150-450); RED BLOOD CELL COUNT(AUTO) 3.67 MIL/uL (4.5-6.0); WHITE BLOOD COUNT (AUTO) 21.3 K/uL (4.3-11.0)
--- NOTE | 2022-03-13 07:28 | NUR ---
BARREL RIB MATTING MACHINE OPERATOR OPENING NOTES: RECEIVED PATIENT IN BED, ASLEEP BUT EASILY AROUSES TO VOICE AND TACTILE STIMULI. PATIENT IS ALERT, ORIENTED X 3. NO RESPIRATORY DISTRESS NOTED AT THIS TIME. ON SR WITH HR OF 77 ON TELE MONITOR. IV ACCESS ON LEFT WRIST/LOWER ARM INTACT, PATENT, FLUSHES WELL, NO S/S INFILTRATION NOTED. ABDOMINAL PAD DRESSING DRY AND INTACT, LEFT AND RIGHT NAVEED DRAINAGE IN PLACE, NOTED WITH SCANTY AMOUNT OF SEROSANGUINEOUS DRAINAGE AT THIS TIME. BED LOCKED AND IN LOWEST POSITION, BED ALARM ON. CALL LIGHT WITHIN REACH. INSTRUCTED PATIENT TO PLEASE CALL FOR ASSISTANCE IF NEEDED. ALL SAFETY MEASURES IN PLACE. WILL CONTINUE TO MONITOR PATIENT THROUGHOUT SHIFT.
[2022-03-13] MEDS: PANTOPRAZOLE 40 MG TABLET.DR PO SCH (07:59)
[2022-03-13 08:00] VITALS: BP 112/71
[2022-03-13] MEDS: ENSURE ENLIVE 237 ML LIQUID (VANILLA) PO SCH (08:00)
[2022-03-13] MEDS: METOPROLOL TARTRATE 25 MG TABLET PO SCH ×2 (09:51→21:03)
[2022-03-13] MEDS: ENOXAPARIN SODIUM 40 MG/0.4 ML DISP.SYRIN SQ SCH (09:51)
[2022-03-13 12:00] VITALS: BP 105/65
--- NOTE | 2022-03-13 14:04 | NUR ---
SPOKE WITH LAURA PHARMACIST @ EXT [phone] TO INFORM HER THAT THE PATIENT'S LAST TROUGH LEVEL WAS 16 ON 03/12/22 AND SAID TO JUST CONTINUE VANCO WITH THE SAME ORDER
[2022-03-13 16:00] VITALS: BP 113/70
--- NOTE | 2022-03-13 18:35 | NUR ---
NEW CAR GET READY MECHANIC CLOSING NOTES: PATIENT IN BED, AWAKE, ALERT, ORIENTED X 3. NO SOB NOTED AND NO RESPIRATORY DISTRESS NOTED THE ENTIRE SHIFT. IV ACCESS ON LEFT FOREARM INTACT, PATENT, FLUSHES WELL, NO S/S INFILTRATION. ABDOMINAL PAD DRESSING DRY AND INTACT. EMPTIED LEFT NAVEED WITH 30 ML OF BROWNISH DISCHARGE, AND RIGHT NAVEED DRAINAGE EMPTIED WITH 5 ML OF SEROSANGUINEOUS DRAINAGE. PATIENT USED THE URINAL AND EMPTIED 850 ML OF YELLOW COLORED URINE. PATIENT HAS NO C/O PAIN OR DISCOMFORT THE ENTIRE SHIFT. INCENTIVE SPIROMETER AT BEDSIDE AND PATIENT HAS BEEN DOING IT EVERY 2 HOURS. BED LOCKED AND IN LOWEST POSITION, BED ALARM ON. CALL LIGHT WITHIN REACH AND PATIENT UNDERSTOOD INSTRUCTIONS TO USE HIS CALL LIGHT. ALL SAFETY MEASURES IN PLACE. WILL ENDORSE TO NEXT SHIFT NURSE FOR CONTINUITY OF CARE.
--- NOTE | 2022-03-13 18:36 | NUR ---
CORRECTION ON NOTES ABOVE OFFICE COMMUNICATION PROFESSOR CLOSING NOTES:
--- NOTE | 2022-03-13 19:30 | NUR ---
RN OPENING NOTE RECEIVED REPORT FROM GEORGE MAYORGA FOR [facility]. PATIENT IN BED AWAKE, ALERT AND ORIENTED X4. CURRENTLY ON RA, TOLERATING WELL. NO S/SX OF ACUTE RESPI DISTRESS NOTED AT THIS TIME. NO SOB, NO PAIN. TELE MONITOR READS SR, HR IN THE 80s. IV ACCESS IN LFA #22G, INTACT AND PATENT. NO FLUIDS INFUSING. ABDOMINAL DRESSING IN PLACE, DRY AND INTACT, NO DRAINAGE OBSERVED. BILATERAL NAVEED DRAIN IN PLACE, INTACT AND DRAINING. ALL SAFETY MEASURES IN PLACE: BED LOCKED IN LOWEST POSITION, BED ALARM ON, CALL LIGHT WITHIN REACH. WILL CONTINUE TO MONITOR THROUGHOUT SHIFT.
[2022-03-13 20:00] VITALS: BP 120/72
[2022-03-13] MEDS: ACETAMINOPHEN 325 MG TABLET PO PRN (21:35)
--- NOTE | 2022-03-13 21:47 | NUR ---
RN NOTE PT COMPLAINS OF PAIN IN HIS ARM, NO RESPI DISTRESS NOTED. GAVE TYLENOL PER PT REQUEST.
[2022-03-14] MEDS: VANCOMYCIN 1 GM in IV D5W 250 ML IV SCH ×2 (01:08→14:00)
[2022-03-14] MEDS: ONDANSETRON HCL/PF 4 MG/2 ML VIAL IVP PRN (02:56)
[2022-03-14 04:00] VITALS: BP 119/74
[2022-03-14] MEDS: LACTULOSE 10 G/15 ML UDC (PYXIS) PO SCH ×2 (05:09→12:01)
[2022-03-14 06:27] LABS: BASOPHILS # (AUTO) 0.1 K/uL (0.0-0.2); BASOPHILS % (AUTO) 0.3 % (0.0-2.0); EOSINOPHILS % (AUTO) 0.5 % (0.0-6.0); HEMATOCRIT 33 % (39-51); HEMOGLOBIN 10.6 g/dL (13.5-17.5); LYMPHOCYTES # (AUTO) 1.6 K/uL (0.8-4.8); LYMPHOCYTES % (AUTO) 7.5 % (20.0-44.0); MEAN CORPUSCULAR HGB CONC 32 g/dl (31.0-36.0); MEAN CORPUSCULAR VOLUME 83 fL (80-96); MONOCYTES % (AUTO) 9.4 % (2.0-12.0); NEUTROPHILS # (AUTO) 17.7 K/uL (1.8-8.9); NEUTROPHILS % (AUTO) 82.3 % (43.0-81.0); PLATELET COUNT (AUTO) 765 K/uL (150-450); RED BLOOD CELL COUNT(AUTO) 4.03 MIL/uL (4.5-6.0); WHITE BLOOD COUNT (AUTO) 21.5 K/uL (4.3-11.0)
--- NOTE | 2022-03-14 06:42 | NUR ---
RN CLOSING NOTE PT REMAINED STABLE T/O THE NIGHT. NO SIGNIFICANT CHANGES NOTED. ALL VS WNL. DUE MEDS GIVEN. AM/PM CARE DONE. PT HAD ONE BM TODAY. WILL ENDORSE TO AM SHIFT NURSE FOR DANISHA.
[2022-03-14 07:32] LABS: CALCIUM, SERUM 7.9 mg/dL (8.5-10.1); MAGNESIUM 2.3 mg/dL (1.8-2.4); PHOSPHORUS 3.5 mg/dL (2.5-4.9); POTASSIUM 3.6 mmol/L (3.5-5.1)
--- NOTE | 2022-03-14 07:32 | NUR ---
SALES SUPPORT REPRESENTATIVE OPENING NOTES: RECEIVED PATIENT IN BED ASLEEP BUT EASILY AROUSES TO VOICE AND TACTILE STIMULI. NO SOB NOTED AT THIS TIME. ON RA WITH OXYGEN SATURATION OF 96%. PATIENT HAS NAVEED ON L AND RIGHT, INTACT AND DRAINING WITH SCANTY AMOUNT OF DRAINAGE. ABDOMINAL DRESSING DRY AND INTACT. IV LINE INTACT ON LEFT FOREARM, FLUSHES WELL, NO S/S INFILTRATION. BED LOCKED AND IN LOWEST POSITION. CALL LIGHT WITHIN REACH. ALL SAFETY MEASURES IMPLEMENTED. WILL CONTINUE TO MONITOR PATIENT THROUGHOUT SHIFT.
[2022-03-14] MEDS: PANTOPRAZOLE 40 MG TABLET.DR PO SCH (07:43)
[2022-03-14] MEDS: METOPROLOL TARTRATE 25 MG TABLET PO SCH (09:15)
[2022-03-14] MEDS: ENSURE ENLIVE 237 ML LIQUID (VANILLA) PO SCH (09:16)
[2022-03-14] MEDS: ENOXAPARIN SODIUM 40 MG/0.4 ML DISP.SYRIN SQ SCH (09:16)
[2022-03-14] MEDS ORDERED: AMPI500C11 PO (11:00)
[2022-03-14] MEDS ORDERED: LACT10SO58 PO (11:00)
[2022-03-14] MEDS ORDERED: ENOX40DI SQ (11:00)
[2022-03-14] MEDS ORDERED: ACET325T53 PO (11:00)
[2022-03-14] MEDS ORDERED: METO25TA20 PO (11:00)
[2022-03-14] MEDS ORDERED: LACT-246 PO (11:00)
[2022-03-14] MEDS ORDERED: PANT40TA49 PO (11:00)
[2022-03-14 12:00] VITALS: BP 103/68
--- NOTE | 2022-03-14 13:34 | NUR ---
TRANSPORTATION CAME TO SUPERVISOR IN CHARGE THE PATIENT. CALLED [facility] @ , SPOKE WITH NURSE OSEI VAZQUEZ AND GAVE FULL REPORT FOR THE PATIENT. IV LINE WAS TAKEN OFF THE PATIENT, NOTED WITH HUB INTACT, ID BAND WAS ALSO TAKEN OFF. PATIENT UNDERSTOOD THE DISCHARGE PROCESS AND ALSO NOTIFIED HIS SISTER. PATIENT DENIES ANY PAIN OR DISCOMFORT AT THIS TIME.
--- NOTE | 2022-03-14 14:00 | NUR ---
PATIENT LEFT VIA GURNEY ACCOMPANIED BY TWO TRANSPORT ASSISTANTS. PATIENT IN NO ACUTE DISTRESS NOTED
== END 2022-03-14 14:04 | DRG 853 ==
LOC: ER 18:24 → TELE 21:58 → MED 03-03 16:06 → TELE 03-10 17:39 → TELE1 03-10 17:52 → TELE-TD 03-10 18:23 → TELE1 03-12 12:49 → MEDSG1 03-13 13:38
PROVIDERS: ADMIT Internal Medicine; ATTEND Nurse Practitioner Acute Care
PROC: 0W9G30Z Drainage of Peritoneal Cavity with Drainage Device, Percutaneous Approach (ICD-10-PCS; 2022-03-01)
PROC: 0DNU0ZZ Release Omentum, Open Approach (ICD-10-PCS; principal; 2022-03-03)
PROC: 0DN80ZZ Release Small Intestine, Open Approach (ICD-10-PCS; 2022-03-03)
PROC: 0W9G00Z Drainage of Peritoneal Cavity with Drainage Device, Open Approach (ICD-10-PCS; 2022-03-03)
PROC: 0W9F0ZX Drainage of Abdominal Wall, Open Approach, Diagnostic (ICD-10-PCS; 2022-03-03)
DX: A41.9 Sepsis, unspecified organism (principal); K65.1 Peritoneal abscess; E44.0 Moderate protein-calorie malnutrition; E87.1 Hypo-osmolality and hyponatremia; D68.59 Other primary thrombophilia; E87.20 Acidosis, unspecified; R65.20 Severe sepsis without septic shock; Z20.822 Contact with and (suspected) exposure to COVID-19; Z91.041 Radiographic dye allergy status; D63.8 Anemia in other chronic diseases classified elsewhere; E88.09 Other disorders of plasma-protein metabolism, not elsewhere classified; R55 Syncope and collapse; E87.6 Hypokalemia; K66.0 Peritoneal adhesions (postprocedural) (postinfection); I48.91 Unspecified atrial fibrillation; D75.839 Thrombocytosis, unspecified; R91.1 Solitary pulmonary nodule; D72.89 Other specified disorders of white blood cells; K59.00 Constipation, unspecified
CPT/HCPCS: 36415; 70450-TC; 71045-TC; 71250-TC; 75989-TC; 80048-TC; 80053-TC; 80076-TC; 80202-TC; 81001; 82105; 82378; 82607-TC; 82728-TC; 82784; 83540-TC; 83605-TC; 83615-TC; 83690-TC; 83735-TC; 84100-TC; 84153-TC; 84154-TC; 84155; 84165; 84443-TC; 84484-TC; 85025-TC; 85610-TC; 85730-TC; 86301; 86334; 87040-TC; 87070-TC; 87075-TC; 87081-TC; 87186-TC; 93971-TC; 94799-TC; 97112-TC; 97116-TC; 97530-TC; A6253; A6403; A9563; G0378; J0282; J0692; J1100; J1170; J1650; J1885; J2250; J2270; J2310; J2405; J2543; J2704; J2765; J3010; J3230; J3370; J3430; J3490; J7030; J7040; J7050; J7060; J7120; Q0161; Q0164

== ENCOUNTER 2022-08-12 16:42 | Emergency (ER) | payer MEDICARE, BC ==
[~2022-08-12] VITALS: Ht 188 cm; Wt 65.8 kg
[~2022-08-12 16:42] MED LIST: ACET325T53 PO; AMPI500C11 PO; ENOX40DI SQ; LACT-246 PO; LACT10SO58 PO; METO25TA20 PO; PANT40TA49 PO
--- NOTE | 2022-08-12 17:00 | NUR ---
RECEVED PT CAME BY [facility] FROM HOME C/O GENRALIZED WEEKNEE AND FAINTING AWAKE AND ALERT NO WEEKESS NO diffecety
--- NOTE | 2022-08-12 17:20 | NUR ---
SEEN BY DR. NEWTON
--- NOTE | 2022-08-12 17:30 | NUR ---
BLOOD DROW AND SENT TO LAB
[2022-08-12] MEDS ORDERED: IV NS 0.9% 1,000 ML IV ONE (18:00)
[2022-08-12 18:19] LABS: CARBON DIOXIDE 27 mmol/L (21-32); CHLORIDE 106 mmol/L (98-107); CREATININE 1.1 mg/dL (0.6-1.3); GLUCOSE 108 mg/dL (74-106); POTASSIUM 3.8 mmol/L (3.5-5.1); SODIUM SERUM 141 mmol/L (136-145); UREA NITROGEN, BLOOD 19 mg/dL (7-18)
[2022-08-12 18:23] LABS: BASOPHILS % (AUTO) 0.3 % (0.0-2.0); EOSINOPHILS % (AUTO) 0.3 % (0.0-6.0); HEMATOCRIT 36 % (39-51); HEMOGLOBIN 11.6 g/dL (13.5-17.5); LYMPHOCYTES # (AUTO) 1.2 K/uL (0.8-4.8); LYMPHOCYTES % (AUTO) 10.1 % (20.0-44.0); MEAN CORPUSCULAR HGB CONC 33 g/dl (31.0-36.0); MEAN CORPUSCULAR VOLUME 87 fL (80-96); MONOCYTES % (AUTO) 8.5 % (2.0-12.0); NEUTROPHILS # (AUTO) 9.5 K/uL (1.8-8.9); NEUTROPHILS % (AUTO) 80.8 % (43.0-81.0); PLATELET COUNT (AUTO) 464 K/uL (150-450); WHITE BLOOD COUNT (AUTO) 11.7 K/uL (4.3-11.0)
[2022-08-12 18:24] LABS: ALANINE AMINOTRANSFERASE 28 U/L (12-78); ALBUMIN 3.2 g/dL (3.4-5.0); ALKALINE PHOSPHATASE 89 U/L (46-116); ASPARTATE AMINOTRANSFERASE 20 U/L (15-37); BILIRUBIN,DIRECT 0.1 mg/dL (0.0-0.2); BILIRUBIN,TOTAL 0.2 mg/dL (0.2-1.0); TOTAL PROTEIN, SERUM 7.5 g/dL (6.4-8.2)
--- NOTE | 2022-08-12 18:25 | NUR ---
UA SENT TO LAB
[2022-08-12 19:23] LABS: BILIRUBIN,URINE NEGATIVE (NEGATIVE); COLOR,URINE YELLOW (YELLOW); LEUKOCYTE ESTERASE ,URINE NEGATIVE (NEGATIVE); NITRITE, URINE NEGATIVE (NEGATIVE); PH,URINE 7.5 (5.0-8.0); PROTEIN,URINE NEGATIVE (NEGATIVE); UGLUCOSE NEGATIVE (NEGATIVE); UROBILINOGEN,URINE 0.2 EU/dL (0.2)
--- NOTE | 2022-08-12 19:24 | NUR ---
TESS ([facility]) [phone].
--- NOTE | 2022-08-12 19:25 | NUR ---
HAND OFF LORENZO VAZQUEZ
--- NOTE | 2022-08-12 20:20 | NUR ---
Note enrrique in EDM - 08/12/22 at 2043 by BHAVNA Patient discharged to home in stable condition. Written and verbal after care instructions given. Patient verbalizes understanding of instruction. IV removed. Catheter intact and site benign. Pressure and 4x4 applied to site. No bleeding noted.
--- NOTE | 2022-08-12 20:52 | NUR ---
[facility] CALLED FOR TRANSPORT, ETA 60-70 MIN PER EVER.
--- NOTE | 2022-08-12 21:49 | NUR ---
[facility] AT PT'S BEDSIDE FOR D/C TO HOME. REPORT GIVEN TO [facility] EMT
[2022-08-12 22:18] VITALS: BP 133/88
== END 2022-08-12 22:19 | disposition home or self-care (01) ==
LOC: ER 16:45
DX: E86.0 Dehydration (principal); R53.1 Weakness; Z91.040 Latex allergy status; Z79.899 Other long term (current) drug therapy; Z60.2 Problems related to living alone
CPT/HCPCS: 99285; 96360; 71045; 93005; 85025; 80048; 80076; 81003; 36415; 84484; J7030